=== PATIENT | male | born 1945 | race Caucasian/White ===

== ENCOUNTER 2021-11-07 23:44 | Inpatient (IN) | payer OTHER ==
[~2021-11-07] VITALS: Ht 172.7 cm; Wt 91.8 kg
[2021-11-07] MEDS ORDERED: SPIR50 PO ×2 (23:54→23:56)
[2021-11-07] MEDS ORDERED: ATOR40TA SC (23:54)
[2021-11-07] MEDS ORDERED: METO50 PO (23:54)
[2021-11-07] MEDS ORDERED: AMLODIPINE-OLM1 EAC4 PO (23:56)
[2021-11-07] MEDS ORDERED: BASAGLAR K100 UNIT/8 SC (23:57)
[2021-11-07 23:58] LABS: BASOPHILS ABSOLUTE AUTO 0.04 K/mm3 (0.00-0.23); BASOPHILS PERCENT AUTO 1 % (0-2); EOSINOPHILS ABSOLUTE AUTO 0.06 K/mm3 (0.00-0.68); EOSINOPHILS PERCENT AUTO 1 % (0-6); Hematocrit 43.4 % (37.0-53.0); Hemoglobin 14.2 g/dL (13.5-17.5); IMMATURE GRAN ABSOLUTE AUTO 0.03 K/mm3 (0.00-0.10); IMMATURE GRAN PERCENT AUTO 0 % (0-1); LYMPHOCYTES ABSOLUTE AUTO 0.77 K/mm3 (0.84-5.20); LYMPHOCYTES PERCENT AUTO 11 % (21-46); MONOCYTES ABSOLUTE AUTO 1.29 K/mm3 (0.16-1.47); MONOCYTES PERCENT AUTO 18 % (4-13); Mean Corpuscular HGB 30.7 pg (26.0-34.0); Mean Corpuscular HGB Conc 32.7 g/dL (31.5-36.5); Mean Corpuscular Volume 94 fL (80-100); Mean Platelet Volume 9.7 fL (9.1-12.4); NEUTROPHILS ABSOLUTE AUTO 4.86 K/mm3 (1.96-9.15); NEUTROPHILS PERCENT AUTO 69 % (41-73); Platelet Count 229 K/mm3 (150-400); RDW Coefficient Variation 14.9 % (11.7-14.2); RDW Standard Deviation 51.5 fL (35.1-46.3); Red Blood Cell Count 4.62 M/mm3 (4.30-5.90); White Blood Cell Count 7.05 K/mm3 (4.00-11.30)
[2021-11-07] MEDS ORDERED: PIOG30 PO (23:58)
[2021-11-08 00:19] LABS: Alanine Aminotransfer (ALT/SGP 27 U/L (12-78); Albumin, Blood 3.1 g/dL (3.4-5.0); Albumin/Globulin Ratio 0.8 (0.8-1.8); Alk Phos 98 U/L (50-136); Anion Gap 6 mmol/L (6-16); Aspartate Aminotrans (AST/SGOT 17 U/L (12-37); Bilirubin, Total 1.1 mg/dL (0.1-1.0); Blood Urea Nitrogen 17 mg/dL (8-24); Bun/Creatinine Ratio 18.7 (12.0-20.0); CO2, Blood 27 mmol/L (21-32); Chloride, Blood 105 mmol/L (98-108); Creatinine, Blood 0.91 mg/dL (0.60-1.20); Globulin, Blood 3.9 g/dL (2.2-4.0); Glomerular Filtration Rate >60 (60-); Glucose, Blood 204 mg/dL (70-99); Potassium, Blood 4.4 mmol/L (3.5-5.5); Sodium, Blood 138 mmol/L (136-145)
[2021-11-08 01:25] LABS: Source, Urine Foley catheter
[2021-11-08 01:32] LABS: Bilirubin, Urine Neg (Neg); Blood, Urine Neg (Neg); Glucose Qualitative, Urine Neg (Neg); Ketones, Urine Neg (Neg); Leukocyte Esterase, Urine Neg (Neg); Nitrite, Urine Neg (Neg); Protein, Urine 3+ (Neg); Urobilinogen, Urine 2+ (Normal)
[2021-11-08 01:33] LABS: Appearance, Urine Clear (Clear); Color, Urine Yellow (P-Yellow)
[2021-11-08 01:37] LABS: Bacteria Not Seen /hpf; Red Blood Cells, Urine Not Seen /hpf (0-2); Squamous Epithelial Cells Rare /hpf (Few); White Blood Cells, Urine Not Seen /hpf (0-5)
[2021-11-08 01:38] LABS: Amorphous Light (0-Heavy)
[2021-11-08 03:40] LABS: Influenza A, PCR NEGATIVE (NEGATIVE); Influenza B, PCR NEGATIVE (NEGATIVE); Resp Syncytial Virus, PCR NEGATIVE (NEGATIVE)
[2021-11-08 03:41] LABS: SARS-Cov-2 (COVID-19) PCR, MMC POSITIVE (NEGATIVE)
[2021-11-08 03:52] LABS: BASOPHILS ABSOLUTE AUTO 0.03 K/mm3 (0.00-0.23); BASOPHILS PERCENT AUTO 0 % (0-2); EOSINOPHILS ABSOLUTE AUTO 0.05 K/mm3 (0.00-0.68); EOSINOPHILS PERCENT AUTO 1 % (0-6); Hematocrit 43.9 % (37.0-53.0); IMMATURE GRAN ABSOLUTE AUTO 0.03 K/mm3 (0.00-0.10); IMMATURE GRAN PERCENT AUTO 0 % (0-1); LYMPHOCYTES ABSOLUTE AUTO 0.93 K/mm3 (0.84-5.20); LYMPHOCYTES PERCENT AUTO 11 % (21-46); MONOCYTES PERCENT AUTO 13 % (4-13); Mean Corpuscular HGB 30.1 pg (26.0-34.0); Mean Corpuscular HGB Conc 31.9 g/dL (31.5-36.5); Mean Corpuscular Volume 94 fL (80-100); Mean Platelet Volume 9.4 fL (9.1-12.4); NEUTROPHILS ABSOLUTE AUTO 6.23 K/mm3 (1.96-9.15); NEUTROPHILS PERCENT AUTO 74 % (41-73); Platelet Count 215 K/mm3 (150-400); RDW Coefficient Variation 14.9 % (11.7-14.2); Red Blood Cell Count 4.65 M/mm3 (4.30-5.90); White Blood Cell Count 8.37 K/mm3 (4.00-11.30)
[2021-11-08 04:10] LABS: Alanine Aminotransfer (ALT/SGP 26 U/L (12-78); Albumin, Blood 3.1 g/dL (3.4-5.0); Albumin/Globulin Ratio 0.8 (0.8-1.8); Alk Phos 97 U/L (50-136); Anion Gap 5 mmol/L (6-16); Aspartate Aminotrans (AST/SGOT 16 U/L (12-37); Bilirubin, Total 1.2 mg/dL (0.1-1.0); Blood Urea Nitrogen 17 mg/dL (8-24); Bun/Creatinine Ratio 19.2 (12.0-20.0); CO2, Blood 27 mmol/L (21-32); Calcium, Blood 9.1 mg/dL (8.5-10.1); Chloride, Blood 105 mmol/L (98-108); Creatinine, Blood 0.89 mg/dL (0.60-1.20); Glomerular Filtration Rate >60 (60-); Glucose, Blood 176 mg/dL (70-99); Potassium, Blood 4.2 mmol/L (3.5-5.5); Sodium, Blood 137 mmol/L (136-145); Total Protein, Blood 7.1 g/dL (6.4-8.2)
--- NOTE | 2021-11-08 05:21 | NUR ---
SUMMARY PTS COVID TEST RESULTED POSITIVE.PLACED PT IN ISOLATION.PT ALSO HAD SUBLIMAZE IV FOR PAIN.INITIALLY UPON ARRIVAL, PT WAS ALERT AND APPROPRIATE EVEN JOKING WITH THIS RN.SUDDENLY THIS AM,APPROX 0430, PT BECAME FORGOT HE HAD A CATHETER AND TRIED TO CLIMB OUT OF BED.ADAMENT HE NEEDED TO GO "OVER THERE" AND WAS POINTING TO BATHROOM. REMINDED PT OF PATENT MEDINA AND FX HIP AND ADVISED HE IS ON COMPLETE BEDREST, PT CONTINUED AND WAS NOT UNDERSTANDING AND WAS FLOPPING L LEG UP IN AIR KICKING IT TOWARD EDGE OF BED.RLE REMAINED ON BED WITH NOTING A SLIGHT EXTERNAL ROTATION.PEDAL PULSES WEAK BILAT,BUT PRESENT.DIFFICULT TO PALPATE DUE TO SIGNIFICANT EDEMA TO BLE /FEET. I CALLED DR SIMTH REGARDING CONFUSION NOT KNOWING IF IT IS INTERMITTENTLY PTS BASELINE,COVID ISSUE, OR POSSIBLY R/TL SUBLIMAZE GIVIEN. ORDERED ZYPREX X 1 PRN. PTS BED ALARM REMAINS ON AND BED IN LOW POSTIION.
--- NOTE | 2021-11-08 08:49 | NUR ---
PS URINE IS GETTING BLOODY AND APPEARS PT MAY HAV PULLED ON IT, WILL CONT TO MONITOR COLOR.
[2021-11-08] MEDS ORDERED: TAMS.4ER PO (14:44)
[2021-11-08] MEDS ORDERED: Aspir 8181 MG PO (14:45)
[2021-11-08] MEDS ORDERED: [UNRECOGNIZED DRUG - OTHER] PO (14:48)
--- NOTE | 2021-11-09 01:12 | NUR ---
PT HAD ZYPREXA AT 2254 WHICH CALMED PT INITIALLY.HOWEVER, PT IS CONFUSED AND AGAIN BECOMING AGITATED PULLING AT IV AND O2 LINES,TRYING TO CLIMB OUT OF BED. I CALLED DR SMITH AND RECEIVED ORDER FOR SEROQUEL 50 MG PO NOW.DELIVERY CREW MEMBER OBSERVING PT CLOSELY FOR SAFETY AND BED ALARM ON WELL.
--- NOTE | 2021-11-09 01:44 | NUR ---
SPOKE WITH DR SMITH REGARDING PTS D DIMER RESULT,TROPONIN TRENDING,CHEST XRAY RESULT AND CURRENT O2 REQUIREMENT WITH DESAT MID TO HIGH 80'S.ALSO, DISCUSSED CARDIAC HX AND W/U TODAY AND DR HANNY MENTION ? POTENTIAL FOR HEPARIN PREOP.RECEIVED ORDERS FOR TELE,AM TROP,AND 02 TITRATION.
--- NOTE | 2021-11-09 02:54 | NUR ---
PT PULLING AT MEDINA YELLING HE NEEDS TO GO TO BATHROOM. REMINDED PT OF MEDINA,AND FX HIP WITH BEDREST.BUT PT CONFUSED AGITATED CONT PULLING AT PENIS AND CATHETER AND HAS ALREADY TORE STAT LOCK APART.MEDINA DCD FOR PT SAFETY. I CALLED DR SMITH AND ADVISED OF ABOVE.ATIVAN ORDERED X1 DOSE.
--- NOTE | 2021-11-09 04:00 | NUR ---
PT DOSE OF ATIVAN LEAKING FROM IV WHEN NURSE ATTEMPTED TO MEDICATE.IV WAS DCD WITH CATH INTACT PER PRIMARY NURSE AND NEW SITE WAS OBTAINED.NURSE NOTED MILD ABD TUGGING WITH INITIAL 02 NEED 2L N/C NOW INCREASED NEED OF 5 L N/C.PT COMBATIVE PULLING O2 OFF.I CALLED DR SMITH AND ADVISED OF ABOVE AND CONCERNS FOR NEED OF INCREASED 02 AND RECEIVED ORDERS FOR ADDITIONAL DOSE OF ATIVAN AND ABG.
[2021-11-09 04:38] LABS: PCO2 Arterial 57.1 mmHg (35-45); PO2 Arterial 177 mmHg (80-100); pH Blood Arterial 7.29 (7.35-7.45)
--- NOTE | 2021-11-09 05:33 | NUR ---
SHIFT SUMMARY: PT IN BED MILDLY CONFUSED AND YELLING FOR PAIN IN LEG. AAOX2. VS WNL. IV LINE IN RIGHT HAND PATENT. MEDINA CATHETER IN PLACE PATENT WITH KENNY COLOR URINE. 2044 PT CONTINUE YELLING FOR PAIN.MEDICATED PER EMAR. COUGHING AND AGITATED. PULLING AT IV AND AND MEDINA CATHETER. 2253 ZYPREXA GIVEN PER EMAR. PT AGITATED PULLING ON MEDINA AND IV LINE. PT PALE CALLED DR. PAYNE GOT ORDER FOR O2 NC @2L. PT PLACED ON PULSE OX. ORDER PLACED FOR FURNACE MECHANIC HELPER. MONITOR IN PLACE PULLING LEADS. 0200 MEDICATION GIVEN PER EMAR AND NEW ORDER FOR SEROQUEL GIVEN. 0255 PT REMAINS AGITATED PULLING AT IV LINE. ATIVAN GIVEN ORDERED PER EMAR BUT LEAKED OUT. IV D/C LINE INTACT.0345 NEW IV LINE PLACED IN RIGHT FOREARM. CONTINUES TO BE VERY AGITATED. CALLED DR GOT ORDERS FOR ABG'S. GOT NEW ORDERED FOR ATIVAN GIVEN. RESP AT DOORWAY WAITING FOR PATIENT TO CALM DOWN. O2 SAT DECREASING INCREASED 02 TO 5L. O2 SAT DROP TO 63. PLACED ON NON-REBREATHER. CALL FOR RAPID RESPONSE TEAM. MEDICATED TOOK OVER CARE. SEVERAL CALLS MADE TO NO ANSWER OR BUSY 0530,[id number].
[2021-11-09 06:43] LABS: Source, Urine Foley catheter
[2021-11-09 06:57] LABS: Appearance, Urine Clear (Clear); Bilirubin, Urine Neg (Neg); Blood, Urine 5+ (Neg); Color, Urine Yellow (P-Yellow); Glucose Qualitative, Urine Neg (Neg); Ketones, Urine Neg (Neg); Leukocyte Esterase, Urine Neg (Neg); Nitrite, Urine Neg (Neg); Protein, Urine 3+ (Neg); Specific Gravity, Urine 1.015 (1.003-1.022); Urobilinogen, Urine 2+ (Normal)
[2021-11-09 07:11] LABS: Red Blood Cells, Urine 25-50 /hpf (0-2); Squamous Epithelial Cells Rare /hpf (Few)
[2021-11-09 07:12] LABS: Bacteria Few /hpf
[2021-11-09 07:15] LABS: Alanine Aminotransfer (ALT/SGP 27 U/L (12-78); Albumin, Blood 2.5 g/dL (3.4-5.0); Albumin/Globulin Ratio 0.7 (0.8-1.8); Alk Phos 75 U/L (50-136); Anion Gap 7 mmol/L (6-16); Aspartate Aminotrans (AST/SGOT 22 U/L (12-37); Bilirubin, Total 1.7 mg/dL (0.1-1.0); Blood Urea Nitrogen 12 mg/dL (8-24); Bun/Creatinine Ratio 11.9 (12.0-20.0); CO2, Blood 26 mmol/L (21-32); Calcium, Blood 8.4 mg/dL (8.5-10.1); Chloride, Blood 106 mmol/L (98-108); Creatinine, Blood 1.01 mg/dL (0.60-1.20); Globulin, Blood 3.5 g/dL (2.2-4.0); Glomerular Filtration Rate >60 (60-); Glucose, Blood 141 mg/dL (70-99); Potassium, Blood 4.3 mmol/L (3.5-5.5); Sodium, Blood 139 mmol/L (136-145)
--- NOTE | 2021-11-09 07:15 | NUR ---
ARRIVAL TO ICU/ INTUBATION PT ARRIVED TO ICU AT 0440 VIA SURG FLOOR BED WITH TWO RT AND ICU CHARGE NURSE AFTER WELL LOGGING OPERATOR MUD ANALYSIS WAS CALLED ON SURG FLOOR. PT TRANSFERED TO ICU BED VIA SLIDE SHEET. PT IS RESPONSIVE TO PAINFUL STIMULI AND REPOSITIONING BUT IS NOT FOLLOWING DIRECTIONS, JUST MOANING IN BED; 0.4 OF NARCAN GIVEN AND NOT HELPFUL; ADDITIONAL 0.2 OF ROMAZICON GIVEN AND NOT HELPFUL. PT IS ON BIPAP SETTINGS 28/16, FIO2 60%. HR 70'S. SBP 90'S; MAP 60-65; NOTIFIED DR SMITH WHO PROVIDED ORDERS FOR A 500ML BOLUS. BLADDER SCAN COMPLETED WITH 75ML URINE SHOWING. AT 0528 PT BRADYED DOWN TO HR 20'S; CODE BLUE CALLED; PULSE NEVER LOST BUT THREADY; SPO2 DECREASING; ED MD AT BEDSIDE AND INTUBATED PT. 8.0 ETT PLACED WITH 24CM AT TEETH. MAP CONT TO BE 60'S; CENTRAL LINE PLACED FOR POSSIBLE PRESSOR REQUIREMENT BY DR SMITH; STARTING ANOTHER 500ML BOLUS NOW FOLLOWED BY NS INFUSING AT 125ML/HR. OG PLACED. MEDINA INSERTED, UA SENT. CHEST XRAY COMPLETED. PT CONT TO ONLY BE RESPONSIVE TO PAINFUL STIMULI; NO SEDATION AT THIS TIME. EKG DONE. SHIFT REPORT GIVEN TO AM NURSE GILDA GRAHAM.
--- NOTE | 2021-11-09 08:15 | NUR ---
UPDATE: HYPOTENSION. 2nd 500ml NS BOLUS COMPLETE. MAINTENANCE FLUIDS STARTED @ 125ml/hr. MAPs TRENDING DOWNWARDS, NOW 50s. HOSPITALIST JEWELS CALLED & UPDATED. ORDERS RECEIVED FOR 3rd 500ml NS BOLUS. ORDERS PLACED.
[2021-11-09 08:47] LABS: BASOPHILS ABSOLUTE AUTO 0.02 K/mm3 (0.00-0.23); BASOPHILS PERCENT AUTO 0 % (0-2); EOSINOPHILS ABSOLUTE AUTO 0.02 K/mm3 (0.00-0.68); EOSINOPHILS PERCENT AUTO 0 % (0-6); Hematocrit 37.2 % (37.0-53.0); Hemoglobin 11.9 g/dL (13.5-17.5); IMMATURE GRAN ABSOLUTE AUTO 0.05 K/mm3 (0.00-0.10); IMMATURE GRAN PERCENT AUTO 1 % (0-1); LYMPHOCYTES ABSOLUTE AUTO 0.73 K/mm3 (0.84-5.20); LYMPHOCYTES PERCENT AUTO 8 % (21-46); MONOCYTES ABSOLUTE AUTO 1.47 K/mm3 (0.16-1.47); MONOCYTES PERCENT AUTO 16 % (4-13); Mean Corpuscular HGB 30.6 pg (26.0-34.0); Mean Corpuscular Volume 96 fL (80-100); Mean Platelet Volume 9.7 fL (9.1-12.4); NEUTROPHILS ABSOLUTE AUTO 7.08 K/mm3 (1.96-9.15); NEUTROPHILS PERCENT AUTO 76 % (41-73); Platelet Count 180 K/mm3 (150-400); RDW Coefficient Variation 14.6 % (11.7-14.2); RDW Standard Deviation 51.1 fL (35.1-46.3); Red Blood Cell Count 3.89 M/mm3 (4.30-5.90); White Blood Cell Count 9.37 K/mm3 (4.00-11.30)
--- NOTE | 2021-11-09 09:24 | NUR ---
UPDATE: PT UNSTABLE FOR CT / HYPOTENTION WHILE RECEIVING BOLUS, MAPs INC TO 80s & MAINTAINED UNTIL BOLUS COMPLETED, THEN MAPs DROPPED TO 50s. PROPOFOL DEC & PT BEGAN TO COUGH AGAINST ETT & PULL @ RESTRAINTS. CT HELD. GOSMAN UPDATED & LEVOPHED ORDERED. WILL TRANSFER PT TO CT ONCE STABLE.
--- NOTE | 2021-11-09 11:45 | NUR ---
UPDATE: ORTHO ROUNDING. DR BARNES @ BEDSIDE FOR AM ROUNDS, UPDATED ON PT PROGRESSION T/O THE NIGHT & MORNING. PT WILL NOT GO TO THE OR TODAY, STS THE PT's FRACTURE CAN WAIT UNTIL HE IS MORE STABLE & HE IS NOT OVERLY CONCERNED ABOUT THE HIP @ THIS TIME. EMMANUEL's TRACTION W/ 5lb MAX TO BE PLACED ONLY IF PT BEGINS TO LOOK VERY UNCOMFORTABLE. NO NEW ORDERS. ARSALAN UPDATED.
--- NOTE | 2021-11-09 12:15 | NUR ---
UPDATE: CT COMPLETE / CARDIOLOGY CONSULT PT TO CT FOR PE STUDY & HEAD CT. UPON RETURNING TO ICU, CENTRAL LINE WAS DC'd DURING TRANSPORT. ARSALAN @ BEDSIDE TO PLACED R FEMORAL CENTRAL LINE. LINE PLACE W/OUT DIFF & LEVOPHED RESTARTED. PT CONTINUES TO BE IN AFIB W/ SELF RESOLVING NOAH EPISODES w/ HR LOW 38 & RETURNING TO THE 60s. INTERMITTENT 1-[address] LEW CALLED W/ NO ANSWER. ONCALL MARKETING SUPPORT SPECIALIST, ALEJANDRA, PAGED - AWAITING CALL BACK. MATERIALS RESEARCH ENGINEER AWARE OF PT PROGRESSION.
--- NOTE | 2021-11-09 13:48 | NUR ---
UPDATE: CALL OUT TO CARDIOLOGY PT BECOMING PROGRESSIVELY MORE NOAH, HR CONSISTENTLY 40s W/ 1-3 sec PAUSES. ALEJANDRA PAGED AGAIN, NO RETURN CALL. [facility] CALLED & SPOKE W/ ANSWERING SERVICE. ALEJANDRA IS IN A CASE, MESSAGE GIVEN REGARDING ABOVE. ALEJANDRA TO CALL ONCE CASE IS FINISHED. POST FRAMER UPDATED.
--- NOTE | 2021-11-09 14:24 | NUR ---
SPOKE W/ DR ROBERTS, UPDATED ON PT PROGRESSION. MD TO COME SEE PT SHORTLY
--- NOTE | 2021-11-09 15:00 | NUR ---
UPDATE: DR LEW ROUNDING. SPOKE W/ DR ROBERTS, STS DR LEW SAW THE PT YESTERDAY UPON ADMISSION & HE WILL BE THE CONSULTING [employer] FOREIGN LANGUAGE TUTOR. DR LEW @ BEDSIDE, GIVEN UPDATE ON PT PROGRESSION & DISCUSSES CASE W/ DR ARRIAZA. NO NEW ORDERS GIVEN. WILL CONTINUE TO MONITOR & REPORT APPROPRIATE.
--- NOTE | 2021-11-09 17:45 | NUR ---
UPDATE: DR LEW ROUNDING. PT IS MUCH IMPROVED AFTER RECEIVING IV LASIX. HR CONTINUES TO BE AFIB, RATE 75-90s, NO NOAH EPISODES, NO PAUSES. MAPs STABLE W/ LEVOPHED @ 1mcg/min. DR LEW @ BEDSIDE FOR RE-EVAL. NO NEW ORDERS GIVEN, HE WILL F/U TOMORROW MORNING.
--- NOTE | 2021-11-09 22:00 | NUR ---
ASSUMED CARE AT 1900 PT LAYING IN BED INTUABED WITH VENT SETTINGS AC/VC 16/500/5/55%; SMALL AMOUNT OF THICK SECREATIONS NOTED. PT SEDATED WITH PROPOFOL INFUSING AT 45MCG/KG/MIN; PT REACTIVE TO NOXIOUS STIMULI BUT DID NOT FOLLOW DIRECTION; GAG AND COUGH PRESENT. AFIB NOTED, HR 70-80'S. SBP 120'S; LEVOPHED INFUSING AT 1MCG/MIN. VHP INFUSING VIA OG AT 20ML/HR (GOAL) WITH 30ML WATER FLUSHES Q4HR; 30ML RESIDUAL. MEDINA IN PLACE DRAINING TO GRAVITY. DRESSING TO RT IJ PEELING OFF, DRESSING REMOVED AND NO SIGNS OF BLEEDING OR REDNESS. SEE SHIFT ASSESSMENT FOR FULL ASSESSMENT.
[2021-11-10 04:38] LABS: BASOPHILS ABSOLUTE AUTO 0.02 K/mm3 (0.00-0.23); BASOPHILS PERCENT AUTO 0 % (0-2); EOSINOPHILS ABSOLUTE AUTO 0.09 K/mm3 (0.00-0.68); EOSINOPHILS PERCENT AUTO 1 % (0-6); Hematocrit 38.4 % (37.0-53.0); Hemoglobin 12.5 g/dL (13.5-17.5); IMMATURE GRAN ABSOLUTE AUTO 0.05 K/mm3 (0.00-0.10); IMMATURE GRAN PERCENT AUTO 1 % (0-1); LYMPHOCYTES ABSOLUTE AUTO 0.68 K/mm3 (0.84-5.20); LYMPHOCYTES PERCENT AUTO 6 % (21-46); MONOCYTES ABSOLUTE AUTO 1.13 K/mm3 (0.16-1.47); MONOCYTES PERCENT AUTO 11 % (4-13); Mean Corpuscular HGB 30.3 pg (26.0-34.0); Mean Corpuscular HGB Conc 32.6 g/dL (31.5-36.5); Mean Corpuscular Volume 93 fL (80-100); NEUTROPHILS ABSOLUTE AUTO 8.58 K/mm3 (1.96-9.15); NEUTROPHILS PERCENT AUTO 81 % (41-73); Platelet Count 194 K/mm3 (150-400); RDW Coefficient Variation 14.6 % (11.7-14.2); RDW Standard Deviation 50.4 fL (35.1-46.3); Red Blood Cell Count 4.13 M/mm3 (4.30-5.90); White Blood Cell Count 10.55 K/mm3 (4.00-11.30)
[2021-11-10 04:57] LABS: Anion Gap 9 mmol/L (6-16); Blood Urea Nitrogen 14 mg/dL (8-24); Bun/Creatinine Ratio 16.6 (12.0-20.0); CO2, Blood 25 mmol/L (21-32); Calcium, Blood 8.5 mg/dL (8.5-10.1); Chloride, Blood 106 mmol/L (98-108); Creatinine, Blood 0.85 mg/dL (0.60-1.20); Glomerular Filtration Rate >60 (60-); Glucose, Blood 216 mg/dL (70-99); Magnesium, Blood 1.9 mg/dL (1.6-2.4); Phosphorus, Blood 2.4 mg/dL (2.5-4.9); Potassium, Blood 3.6 mmol/L (3.5-5.5); Sodium, Blood 140 mmol/L (136-145)
--- NOTE | 2021-11-10 06:08 | NUR ---
END OF SHIFT SUMMARY NO ACUTE EVENTS OVERNIGHT. PT CONT TO BE INTUBATED WITH VENT SETTINGS AC/VC 16/500/5/50%; SMALL AMOUNT OF THIN SECREATIONS SENT TO LAB. PT IS REACTIVE TO PAINFUL STIMULI INCLUDING REPOSITIONING SHOWN BY INCREASED RR, INCREASED HR, GRIMICING AND WEAKLY PULLING AGAINST LT RESTRAINT; PROPOFOL INFUSING AT 40MCG/KG/MIN. DILAUDID GIVEN TWICE FOR CPOT 2-4 AND HELPFUL. MAX TEMP 100.9; FAN PLACED FOLLOWED BY ORDERS RECIEVED FROM DR SMITH FOR LIQUID TYLENOL; TEMP STARTED DECREASING WITH JUST FAN, LIQUID TYLENOL NOT GIVEN. AFIB RHYTHM NOTED; HR 80-90'S; NO NOAH EVENTS THIS SHIFT. SBP 110-130; LEVOPHED ON SB SINCE 2314. VHP INFUSING VIA OG AT GOAL WITH RESIDUALS <100ML. MEDINA IN PLACE WITH 1150ML OUTPUT THIS SHIFT. WILL REPORT TO AM RN WHEN AVAILABLE.
--- NOTE | 2021-11-10 07:18 | NUR ---
Received report from Marlen GRAHAM Patient is intubated and sedated. He has 8.0 ET and 26 cm at teeth with vent settings of AC/VC+ 16/500/50/5 and sats 94%. he arouses slightly to nocious stimuli. He has 18ga PowerGlide to DON dressing intact and site WNL's and is flushed and SL'd. He also has quad lumen CL in R groin dressing iontact and site WNL's and is infusing Propofol 40 mcg/kg/min. He has OG in place infusing VHP at 20 ml./hr and 30 ml water flushes Q4. He jhas 16Fr temp mata draining to gravity manjeet colored urine and a temp of 98.4. He has reddnes to RLE from foot to knee and redness to LLE foot to ankle and poor foot hygiene. Skin t/o otherwise in good condition and pale. He is in isolation for Covid and in bilateral wrist restraints for line and tube safety. He has been in A-Fib in 70-80's. Dr Urena has been by and will be back at 0730 with patient's son.
--- NOTE | 2021-11-10 08:39 | NUR ---
Patient had old RIJ site, pulled sutures and cleaned , placed clear opsite in place. Patient tolerated care, turning, ness care, and re-applied restraints.
--- NOTE | 2021-11-10 09:12 | NUR ---
Patient propofol off and Dr Christopher adjusted vent settings to Spon. mode PS10 40/5 and sats 96%. He is not awaking very quickly and has 200-400 volumes.
--- NOTE | 2021-11-10 09:59 | NUR ---
Patients vent settings adjusted to Spon. Mode PS8/35%/5 and sats 95%, 300-400 volumes. patient folowing commands and opens eye to verbal stimuli. Suctioned moderate secretions.
--- NOTE | 2021-11-10 11:12 | NUR ---
Patient extubated at 1030 and restraints removed at same time. Patient given bath and linen change. Patient c/o 06/28 pain with repositioning and medicated per MAR 0.5 mg Dilaudid. Notify family of change. Patient currently on 4L via NC and sats >90%. Callahan remains patent and draining to gravity manjeet colored urine.
--- NOTE | 2021-11-10 13:30 | NUR ---
Patient belly breathing and placed on CPAP 10/40% and tolerating well. He is unable to hold conversatiion other than short outburst. Follow simple commands. Callahan remains patent with light manjeet urine. CL and PowerGlide flushed and SL'd. Dr Deleon by and will take to surgery tomorrow ansd NPO after midnight and no heparin. Repositioned
--- NOTE | 2021-11-10 15:30 | NUR ---
Patient has been resting on same CPAP settings of 10 and 40% with sats. He is awakening to verbnal stimuli and can say a few words in a row.
--- NOTE | 2021-11-10 17:30 | NUR ---
Patient needed to be place back in restraints as he was pulling at mask very frequently. He is very painful with turns and is incontnent to stool and had large stool. He remains on CPAP at 10 and 40% FiO2 and sats >90%. He remains hypertensive even after medication and still very amxious. Callahan patent and had 60 ml green/manjeet colored urine. Patient very anxious and irritable at times and is unable to make complete sentences.
--- NOTE | 2021-11-10 23:00 | NUR ---
PT IS VERY PAINFUL, ESPECIALLY WITH TURNS. DR ADAMES IS CALLED AND NEW ORDERS FOR DILAUDID Q 2 ARE RECEIVED.
--- NOTE | 2021-11-11 03:02 | NUR ---
PT CONTINUES TO BE VERY PAINFUL, EVEN 40 MIN AFTER IV DILAUDID IS GIVEN. DR ADAMES IS CONTACTED FOR ORDERS.
[2021-11-11 05:27] LABS: Anion Gap 6 mmol/L (6-16); Blood Urea Nitrogen 14 mg/dL (8-24); Bun/Creatinine Ratio 18.4 (12.0-20.0); CO2, Blood 29 mmol/L (21-32); Calcium, Blood 8.5 mg/dL (8.5-10.1); Chloride, Blood 106 mmol/L (98-108); Creatinine, Blood 0.76 mg/dL (0.60-1.20); Glomerular Filtration Rate >60 (60-); Glucose, Blood 168 mg/dL (70-99); Phosphorus, Blood 2.9 mg/dL (2.5-4.9); Potassium, Blood 3.8 mmol/L (3.5-5.5); Sodium, Blood 141 mmol/L (136-145)
--- NOTE | 2021-11-11 05:30 | NUR ---
CHLORHEXIDINE WIPES DONE
[2021-11-11 05:54] LABS: BASOPHILS ABSOLUTE AUTO 0.01 K/mm3 (0.00-0.23); BASOPHILS PERCENT AUTO 0 % (0-2); EOSINOPHILS ABSOLUTE AUTO 0.13 K/mm3 (0.00-0.68); EOSINOPHILS PERCENT AUTO 2 % (0-6); Hematocrit 38.4 % (37.0-53.0); Hemoglobin 12.4 g/dL (13.5-17.5); IMMATURE GRAN ABSOLUTE AUTO 0.03 K/mm3 (0.00-0.10); IMMATURE GRAN PERCENT AUTO 0 % (0-1); LYMPHOCYTES PERCENT AUTO 10 % (21-46); MONOCYTES ABSOLUTE AUTO 0.99 K/mm3 (0.16-1.47); MONOCYTES PERCENT AUTO 12 % (4-13); Mean Corpuscular HGB 30.6 pg (26.0-34.0); Mean Corpuscular HGB Conc 32.3 g/dL (31.5-36.5); Mean Corpuscular Volume 95 fL (80-100); Mean Platelet Volume 10.8 fL (9.1-12.4); NEUTROPHILS ABSOLUTE AUTO 6.43 K/mm3 (1.96-9.15); NEUTROPHILS PERCENT AUTO 77 % (41-73); Platelet Count 212 K/mm3 (150-400); RDW Coefficient Variation 14.6 % (11.7-14.2); RDW Standard Deviation 50.7 fL (35.1-46.3); Red Blood Cell Count 4.05 M/mm3 (4.30-5.90); White Blood Cell Count 8.39 K/mm3 (4.00-11.30)
--- NOTE | 2021-11-11 06:18 | NUR ---
PT REMAINS SOMEWHAT CONFUSED, ONLY RESPONDS WITH SHORT ANSWERS WHEN QUESTIONED ABOUT PAIN, HE IS INTERMITTENTLY AGITATED, MOANING AND PULLING ON HIS RESTRAINTS. HE IS REASSURED AND REORIENTED FREQUENTLY. HE SLEEPS ON AND OFF ALL NIGHT.
--- NOTE | 2021-11-11 07:11 | NUR ---
NO OTHER SIGNIFICANT CHANGES OVERNIGHT. PT IS MEDICATED WITH HALDOL FOR AGITATION, AND REPOSITIONED FOR COMFORT. REPORT IS GIVEN TO ONCOMING SHIFT.
--- NOTE | 2021-11-11 08:00 | NUR ---
Received report from Mirna GRAHAM. Patient resting in bed with CPAP 10, 40%, RT in room making adjustments and changing over to BIPAP 16/8 40% and sats >90%. Patient resist to turning r/t pain. He remains in restraints as he pulls at mask and tubes.. He has 16 Fr Temp mata in place draining to gravity manjeet colroed urine. He is repositioned and hip supported with blankets, Oral care done. R groin CL and 18ga PowerGlide in DON, both dressings intact and sites WNL's and are flushed and SL'd. His speech remains short and broken. Deficit to left eye and rght side r/t Hx of past stroke.
--- NOTE | 2021-11-11 10:00 | NUR ---
and daughter by and he was placed on high flow 40L 40% and tolerating well for family to be able to communicate and spend brief time. After Dr Christopher spoke with family he wanted him placed back on BIPAP as he was obstructing. Dr castellanos and anesthesiologist have both been by to check on patient. Daughter wants her to be called when heading to surgery and notified as well.
--- NOTE | 2021-11-11 12:08 | NUR ---
Patient resting quietly and current BIPAP settings at 16/8 50% and satas 98%. he remaisn in A-Fib 70's and systolic 130's. Callahan remains patent with urine. Patient remains agitated with care and movement. Patient tolerated PO med with sips of water earlier. Repositioned and supported hip with blankets.
--- NOTE | 2021-11-11 13:35 | NUR ---
Went into room and patient aroused with care. He remains painful with movement and medicated per MAR. He currently on BIPAP 16/8 50% and sats >90%. 16Fr Callahan remains patent with manjeet urine. Noon ABx done. CBG 165. Day surgery by and put surgical chart together. No change to speech /communication.
--- NOTE | 2021-11-11 14:21 | NUR ---
Patient taken to OR on BIPAP in [facility] and monitor.
--- NOTE | 2021-11-11 15:12 | NUR ---
11/11/21 [address] PATIENT ARRIVED TO OR WITH MEDINA CATHETER IN PLACE DRAINING DARK BROWN URINE. PATIENT ALSO ARRIVED WITH CENTRAL LINE IN PLACE IN RIGHT GROIN, WELL A POWER GLIDE IN THE RIGHT UPPER FOREARM.
--- NOTE | 2021-11-11 16:45 | NUR ---
Patient returned on monitor in [facility] and being bagged by anesthesia. Got report from RN and anesthesia. Hooked patient to vent with settings of AC/VC+ 16/420/80/8.0 and sats 99%. Started Propofol at 40 mcg/kg/min. 16fr temp mata and is 98.3. He remains in A-Fib 70-90's. He had 30 Rocoronium at end of procedure and is currently temporary paralyzed. Called and gave update. Right hip site C/D/I. Dr Christopher requested TF to be restarted as before and will drop OG.
[2021-11-11 17:33] LABS: PCO2 Arterial 45.8 mmHg (35-45); PO2 Arterial 86.4 mmHg (80-100); pH Blood Arterial 7.38 (7.35-7.45)
--- NOTE | 2021-11-11 18:11 | NUR ---
Patient had xray for tube placement and NG placement. Was unable to place OG and put NG in right nares, positive bubble in stomach and Dr Christopher said both tubes good. Patient has 8.0 and 25 cm at teeth, Vent settings AC/VC+ 16/420/80/8 and night cleaner titrate to greater than 92%. Callahan patent and had 400 ml dark manjeet out. Patient sedated on 40 mcg/kg/min Propofol. Right hip dressing remains C/D/I.
--- NOTE | 2021-11-11 19:05 | NUR ---
Assumed care. Report received from neetu GRAHAM. Pt in bed, sedated and ventilated via ETT. Vent settings: AC/VC 16/420/8/80%. NG tube in place, TF running at 20 ml/hr goal rate. Pt has R/femoral central line and PG in DON. Propofol running at 40 mcg/kg/min. Callahan catheter in place. SWB restraints in place. VS stable, no acute needs noted at this time. Will continue to monitor.
[2021-11-12 05:02] LABS: BASOPHILS ABSOLUTE AUTO 0.03 K/mm3 (0.00-0.23); BASOPHILS PERCENT AUTO 0 % (0-2); EOSINOPHILS ABSOLUTE AUTO 0.16 K/mm3 (0.00-0.68); EOSINOPHILS PERCENT AUTO 2 % (0-6); Hematocrit 36.2 % (37.0-53.0); Hemoglobin 11.6 g/dL (13.5-17.5); IMMATURE GRAN ABSOLUTE AUTO 0.03 K/mm3 (0.00-0.10); IMMATURE GRAN PERCENT AUTO 0 % (0-1); LYMPHOCYTES ABSOLUTE AUTO 0.72 K/mm3 (0.84-5.20); LYMPHOCYTES PERCENT AUTO 10 % (21-46); MONOCYTES ABSOLUTE AUTO 0.85 K/mm3 (0.16-1.47); MONOCYTES PERCENT AUTO 11 % (4-13); Mean Corpuscular HGB 30.5 pg (26.0-34.0); Mean Corpuscular Volume 95 fL (80-100); Mean Platelet Volume 10.2 fL (9.1-12.4); NEUTROPHILS ABSOLUTE AUTO 5.75 K/mm3 (1.96-9.15); NEUTROPHILS PERCENT AUTO 76 % (41-73); Platelet Count 230 K/mm3 (150-400); RDW Coefficient Variation 14.8 % (11.7-14.2); RDW Standard Deviation 51.2 fL (35.1-46.3); White Blood Cell Count 7.54 K/mm3 (4.00-11.30)
[2021-11-12 05:18] LABS: Anion Gap 5 mmol/L (6-16); Blood Urea Nitrogen 19 mg/dL (8-24); Bun/Creatinine Ratio 28.6 (12.0-20.0); CO2, Blood 29 mmol/L (21-32); Calcium, Blood 8.6 mg/dL (8.5-10.1); Chloride, Blood 105 mmol/L (98-108); Creatinine, Blood 0.66 mg/dL (0.60-1.20); Glomerular Filtration Rate >60 (60-); Glucose, Blood 248 mg/dL (70-99); Phosphorus, Blood 2.3 mg/dL (2.5-4.9); Potassium, Blood 4.2 mmol/L (3.5-5.5); Sodium, Blood 139 mmol/L (136-145)
--- NOTE | 2021-11-12 06:26 | NUR ---
Shift summary. Pt remained in bed throughout shift, sedated and ventilated. Fi02 titrated down to 50%, vent settings otherwise unchanged. Propofol running at 30 mcg/kg/min, DON PG and R/femoral central line WNL. Callahan catheter in place, 500 mls of dark manjeet urine out this shift. VS stable, see shift assessment for further details. Will continue to monitor and report off to dayshift RN.
--- NOTE | 2021-11-12 09:03 | NUR ---
ASSUMPTION OF CARE. MECHANICAL VENTILATION WITH FIO2 50% PEEP 8, DECREASED BY DR. ARRIAZA TO 40%/5. PT TOLERATING WELL AT THIS TIME. LUNG SOUNDS CLEAR DIM. MODERATE THICK WHITE SECRETIONS FROM ETT. A FIB RATE 80S-100S. PROPOFOL DECREASED FROM 30 TO 10 FOR SEDATION VACATION. PT OPENED EYES, SHOWS PURPOSEFUL MOVEMENT OF UPPER EXTREMITIES, WITHDRAWS TO PAIN IN LOWER EXTREMITIES. GRIMACES TO ORAL CARE. TUBE FEED RUNNING AT 20ML/HR. HYPOACTIVE BOWEL TONES. SUPPOSITORY GIVEN PER EMAR. MEDINA DRAINING KENNY URINE. DISCUSSED W DR. ARRIAZA.
--- NOTE | 2021-11-12 19:34 | NUR ---
PT REMAINS ON MECHANICAL VENTILATION. NO ACUTE CHANGES THIS SHIFT. SEDATION VACATION PERFORMED. PURPOSEFUL MOVEMENT IN ALL EXTREMITIES. PROPOFOL NOW RUNNING AT 40. FIO2 40%, PEEP 5. SURGICAL DRESSING WNL. 800CC UOP TODAY. TUBE FEED RUNNING AT 30ML/HR. TURNS Q2. UPDATED ON PT STATUS.
--- NOTE | 2021-11-12 19:41 | NUR ---
Assumed care. Report received from neetu GRAHAM. Pt in bed, sedated and ventilated via ETT. Vent settings: AC/VC 16/420/5/40%. Ng tube in place, TF running at 30 ml/hr goal rate. R/femoral central line in place, DON PG in place, WNL. Propofol running at 40 mcg/kg/min. Callahan catheter in place, draining to gravity, manjeet urine. PAS bilateral calf in place. SWB restraints in place. VS stable, not acute needs at this time. Will continue to monitor.
[2021-11-13 04:38] LABS: BASOPHILS ABSOLUTE AUTO 0.02 K/mm3 (0.00-0.23); BASOPHILS PERCENT AUTO 0 % (0-2); EOSINOPHILS ABSOLUTE AUTO 0.09 K/mm3 (0.00-0.68); EOSINOPHILS PERCENT AUTO 1 % (0-6); Hematocrit 34.9 % (37.0-53.0); Hemoglobin 11.2 g/dL (13.5-17.5); IMMATURE GRAN ABSOLUTE AUTO 0.08 K/mm3 (0.00-0.10); IMMATURE GRAN PERCENT AUTO 1 % (0-1); LYMPHOCYTES PERCENT AUTO 9 % (21-46); MONOCYTES ABSOLUTE AUTO 0.94 K/mm3 (0.16-1.47); MONOCYTES PERCENT AUTO 12 % (4-13); Mean Corpuscular HGB 29.9 pg (26.0-34.0); Mean Corpuscular HGB Conc 32.1 g/dL (31.5-36.5); Mean Corpuscular Volume 93 fL (80-100); Mean Platelet Volume 10.2 fL (9.1-12.4); NEUTROPHILS ABSOLUTE AUTO 6.32 K/mm3 (1.96-9.15); NEUTROPHILS PERCENT AUTO 78 % (41-73); Platelet Count 240 K/mm3 (150-400); RDW Coefficient Variation 14.6 % (11.7-14.2); RDW Standard Deviation 50.4 fL (35.1-46.3); Red Blood Cell Count 3.74 M/mm3 (4.30-5.90); White Blood Cell Count 8.15 K/mm3 (4.00-11.30)
[2021-11-13 04:58] LABS: Anion Gap 6 mmol/L (6-16); Blood Urea Nitrogen 17 mg/dL (8-24); Bun/Creatinine Ratio 24.8 (12.0-20.0); CO2, Blood 29 mmol/L (21-32); Calcium, Blood 8.8 mg/dL (8.5-10.1); Chloride, Blood 102 mmol/L (98-108); Creatinine, Blood 0.69 mg/dL (0.60-1.20); Glomerular Filtration Rate >60 (60-); Glucose, Blood 299 mg/dL (70-99); Magnesium, Blood 1.9 mg/dL (1.6-2.4); Phosphorus, Blood 1.9 mg/dL (2.5-4.9); Potassium, Blood 4.3 mmol/L (3.5-5.5); Sodium, Blood 137 mmol/L (136-145)
--- NOTE | 2021-11-13 06:29 | NUR ---
Shift summary. Vent settings unchanged this shift, AC/VC 16/420/5/40%. Propofol running at 40 mcg/kg/min, sodium phos running at 102 mls/hr. TF at goal rate 30 ml/hr. Callahan in place, 1150 dark manjeet urine out this shift. VS stable throughout shift, see shift assessment for further details. Will continue to monitor and report off to dayshift RN.
[2021-11-13 13:38] LABS: PCO2 Arterial 38.7 mmHg (35-45); PO2 Arterial 70.1 mmHg (80-100); pH Blood Arterial 7.49 (7.35-7.45)
--- NOTE | 2021-11-13 15:41 | NUR ---
PT EXTUBATED TO HFNC AT 1420 WITH VICE PRESIDENT FIXED INCOME IN ROOM. PT NOW ON 8L HFNC. STRONG COUGH BUT IS NOT COOPERATIVE WITH ORAL SUCTIONING.
--- NOTE | 2021-11-13 18:16 | NUR ---
PT NOW ON AIRVO 35L 40%. LARGE SECRETIONS BUT HAS A STRONG COUGH AND IS ABLE TO COUGH UP SPUTUM. WHEN STAFF TRIES TO ORAL SUCTION, PT CLAMPS HIS MOUTH AND DOES NOT LET STAFF SUCTION. REMAINS IN AFIB WITH RATE 80S-110S W/ PVCS. HAS NOT SPOKEN SINCE EXTUBATION. WILL NOD TO QUESTIONS OCCASIONALLY. PURPOSEFUL MOVEMENT WITH LUE AND RUE. NEGLECT ON R SIDE BUT DOES HAVE SOME MOVEMENT OF RUE. RLE WITHDRAWS TO PAIN. KENNY URINE FROM MEDINA. NO NEW SKIN ISSUES.
--- NOTE | 2021-11-14 06:31 | NUR ---
SHIFT SUMMARY. PT BECAME MORE ALERT DURING SHIFT. NODS YES/NO TO QUESTIONS, DOES NOT FOLLOW COMMANDS. STILL IN SWB RESTRAINTS DUE TO ATTEMPTS TO PULL NG TUBE OUT. PT AIRVO SETTINGS UNCHANGED THIS SHIFT, 35 L/MIN, 40%. PT COUGHING UP COPIOUS THICK SECRETIONS. R/FEMORAL SURGICAL DRESSING IN PLACE, C/D/I. R/FEM CENTRAL LINE, DON PG BOTH WNL, CAPS CHANGED/LUMENS FLUSHED. MEDINA IN PLACE, 800 MLS OUT THIS SHIFT. SEE SHIFT ASSESSMENT FOR FURTHER DETAILS, WILL CONTINUE TO MONITOR AND REPORT OFF TO DAYSHIFT RN.
--- NOTE | 2021-11-14 07:49 | NUR ---
AM NOTE.... ASSUMED CARE OF PT AT 0700, THE PT IS A&Ox2 ABLE TO FOLLOW DIRECTIONS AT TIMES AND NOD HIS HEAD APPROPRIATELY TO QUESTIONS. THE PT IS ON AIRVO AT 35L AND 40% WITH O2 SATS 90-95%. L/S CLEAR AND DIM ON THE RIGHT SIDE COARSE ON THE LEFT. RR IS IN THE 20'S-30'S. BP STABLE. THE PT HAS TRACE EDEMA NOTED TO HIS BLE. NG TUBE IN PLACE RUNNING TUBE FEEDS AT 10MLS/HR WITH NO RESIDUALS, THIS WAS INCREASED TO 20MLS/HR AT 0735. BT PRESENT AND HYPOACTIVE, ABD IS SOFT AND NONTENDER TO PALP. THE PT'S RIGHT HIP HAS A DRESSING THAT IS C/D/I. THE PT WAS MEDICATED FOR PAIN PER EMAR. WHEN THE PT WAS ASKED IF HE WAS IN PAIN HE SAID "NO" BUT WHEN HE WAS ASKED IF HIS HIP HURT HE SAID "YES." WILL CONTINUE TO MONITOR.
--- NOTE | 2021-11-14 10:59 | NUR ---
PT UPDATE.... THE PT'S TUBE FEEDS WERE CHANGED TO GLUCERNIA WITH A GOAL OF 70MLS/HR THE PT'S CURRENT TUBE FEED RATE IS 20MLS/HR THIS WAS INCREASED TO 45MLS/HR D/T NO RESIDUALS NOTED ON ASSESSMENT. THE PT HAS USED THE PILLOW TO PULL OFF THE AIRVO CANNULA 3 TIMES THIS MORNING THE PT'S O2 SATS DROP QUICKLY DOWN TO THE LOW 80'S. WILL CONTINUE TO MONITOR.
--- NOTE | 2021-11-14 18:01 | NUR ---
SHIFT SUMMARY.... AT 1710 THE PT WAS ABLE TO PULL OUT OF THE SOFT WRIST RESTRAINT ON HIS LEFT WRIST AND PULLED HIS NG TUBE WHILE IT WAS RUNNING THE TUBE FEED AT 45MLS/HR. THE PT ALSO PULLED OFF THE AIRVO CANNULA AND HIS O2 SATS DROPPED DOWN TO THE LOW 80'S. THIS WAS PLACED BACK ON THE PT AND THE FIO2 WAS INCREASED TO 100% TO GET THE PT'S O2 SATS >90%. THE PT'S L/S HAVE SLIGHTLY INCREASED COARSENESS IN THE UPPER LOBES. DR. SERVIN NOTIFIED AND SHE WENT INTO THE ROOM TO ASSESS THE PT. PER DR. SERVIN WE WILL SEE IF THE PT CAN PASS A SWALLOW EVALUATION IN THE MORNING IF NOT THE NG TUBE WILL BE REPLACED. THE PT'S VS HAVE BEEN STABLE T/O THIS SHIFT UNLESS THE PT PULLS THE AIRVO OFF THEN HIS O2 SATS DROP QUICKLY. THE PT WAS GIVEN A BEDBATH AND LINEN CHANGE. HE WAS TURNED Q2 HRS BY STAFF BUT EVERY TIME HE IS TURNED FROM SUPINE HE WILL SLIDE HIMSELF BACK TO SUPINE. THE PT'S WAS AT THE BEDSIDE DURING VISITING HOURS, SHE WAS UPDATED BY DR. SERVIN AND THIS RN. THE PT'S MEDINA IS PATENT AND DRAINING TO GRAVITY. THE PT DID NOT HAVE A BM THIS SHIFT. WILL CONTINUE TO MONITOR UNTIL REPORT IS GIVEN TO ONCOMING RN.
--- NOTE | 2021-11-14 19:00 | NUR ---
ASSUMED CARE ASSUMED CARE OF PATIENT. AWAKE AND ALERT. MOANING AND CALLING OUT. OCCASIONAL WORDS, BUT MOSTLY INCOMPREHENSIBLE. NOT FOLLOWING ANY COMMANDS. MOVES ALL EXTREMITIES, L>R. MINIMAL MOVEMENT NOTED IN RLE. REMAINS ON AIRVO- 30L/60% FIO2. SLIGHTLY TACHYPNEIC WITH RESPIRATIONS 24-28. NPO. MEDINA PATENT AND DRAINING KENNY URINE. RIGHT HIP DRSG D/I. SCDs TO BLE. NS INFUSING AT 25CC/HR PER ORDER. REMAINS IN ENHANCED ISOLATION FOR COVID-19. SEE SHIFT ASSESSMENT FOR FULL ASSESSMENT.
[2021-11-15 04:51] LABS: BASOPHILS ABSOLUTE AUTO 0.05 K/mm3 (0.00-0.23); BASOPHILS PERCENT AUTO 1 % (0-2); EOSINOPHILS ABSOLUTE AUTO 0.29 K/mm3 (0.00-0.68); EOSINOPHILS PERCENT AUTO 3 % (0-6); Hematocrit 34.7 % (37.0-53.0); Hemoglobin 11.2 g/dL (13.5-17.5); IMMATURE GRAN ABSOLUTE AUTO 0.23 K/mm3 (0.00-0.10); IMMATURE GRAN PERCENT AUTO 3 % (0-1); LYMPHOCYTES ABSOLUTE AUTO 1.03 K/mm3 (0.84-5.20); LYMPHOCYTES PERCENT AUTO 12 % (21-46); MONOCYTES ABSOLUTE AUTO 0.98 K/mm3 (0.16-1.47); MONOCYTES PERCENT AUTO 11 % (4-13); Mean Corpuscular HGB 30.2 pg (26.0-34.0); Mean Corpuscular HGB Conc 32.3 g/dL (31.5-36.5); Mean Corpuscular Volume 94 fL (80-100); Mean Platelet Volume 10.7 fL (9.1-12.4); NEUTROPHILS ABSOLUTE AUTO 6.27 K/mm3 (1.96-9.15); NEUTROPHILS PERCENT AUTO 71 % (41-73); Platelet Count 280 K/mm3 (150-400); RDW Coefficient Variation 14.7 % (11.7-14.2); RDW Standard Deviation 51.1 fL (35.1-46.3); Red Blood Cell Count 3.71 M/mm3 (4.30-5.90); White Blood Cell Count 8.85 K/mm3 (4.00-11.30)
[2021-11-15 05:31] LABS: Alanine Aminotransfer (ALT/SGP 66 U/L (12-78); Albumin, Blood 1.9 g/dL (3.4-5.0); Albumin/Globulin Ratio 0.4 (0.8-1.8); Alk Phos 98 U/L (50-136); Anion Gap 6 mmol/L (6-16); Aspartate Aminotrans (AST/SGOT 55 U/L (12-37); Bilirubin, Total 1.6 mg/dL (0.1-1.0); Blood Urea Nitrogen 22 mg/dL (8-24); Bun/Creatinine Ratio 34.5 (12.0-20.0); CO2, Blood 26 mmol/L (21-32); Calcium, Blood 8.8 mg/dL (8.5-10.1); Chloride, Blood 108 mmol/L (98-108); Creatinine, Blood 0.64 mg/dL (0.60-1.20); Globulin, Blood 4.4 g/dL (2.2-4.0); Glomerular Filtration Rate >60 (60-); Glucose, Blood 178 mg/dL (70-99); Phosphorus, Blood 2.4 mg/dL (2.5-4.9); Potassium, Blood 4.1 mmol/L (3.5-5.5); Sodium, Blood 140 mmol/L (136-145); Total Protein, Blood 6.3 g/dL (6.4-8.2)
--- NOTE | 2021-11-15 06:37 | NUR ---
SHIFT SUMMARY NO ACUTE CHANGES. REMAINS IN AIRVO- NOW 30L/50% FIO2. CONTINUES WITH FREQUENT HARSH, CONGESTED COUGH. RESPIRATIONS EVEN AND UNLABORED AT REST. MONITOR SHOWS AFIB, RATE 90s-100s. BP STABLE. TMAX 100.4F. NPO. MEDINA PATENT AND DRAINING TO GRAVITY. SCDs TO BLE. RIGHT HIP DRSG D/I. MEDICATED WITH TORADOL 15MG IV X 2 DOSES AND FENTANYL 50MCG IV X 2 DOSES WITH SOME RELIEF OF PAIN. PT IS ORIENTED TO SELF ONLY. OCCASIONALLY FOLLOWS SIMPLE COMMANDS. SPEECH IS INCOMPREHENSIBLE AT TIMES. WILL REPORT TO ONCOMING RN WHEN AVAILABLE.
--- NOTE | 2021-11-15 07:52 | NUR ---
AM NOTE.... ASSUMED CARE OF PT AT 0700, THE PT IS A&O ABLE TO STATE HIS FAMILY'S NAMES, THE PRESIDENT BUT WHEN ASKED ABOUT THE DATE HE SAID 1962. THE PT THOUGTH HE WAS IN ONSET. THE PT WAS ON AIRVO AT 30L AND 50% WITH O2 SATS >90% L/S CLEAR AND DIM T/O. RR IN THE 20'S. THE PT IS IN AFIB IN THE LOW 100'S. TRACE EDEMA NOTED TO HIS BLE. THE PT CURRENTLY DENIES ANY PAIN. THE DRESSING TO THE PT'S RIGHT HIP IS C/D/I. THE PT'S MEDINA IS PATENT AND DRAINING TO GRAVTIY. THE PT IS MORE AWAKE AND ALERT THAN YESTERDAY HE IS ABLE TO SAY MORE MORES AND THEY ARE MORE CLEAR. THE PT CONTINUES TO PULL ON THE RESTRAINTS IN AN ATTEMPT TO REMOVE THE AIRVO FROM HIS NOSE WHEN THIS HAPPENS HIS O2 SATS DROP TO THE 80'S. CALL LIGHT IN REACH WILL CONTINUE TO MONITOR.
[2021-11-15 10:31] LABS: Vancomycin, Trough 14.3 ug/mL (5.0-10.0)
--- NOTE | 2021-11-15 11:49 | NUR ---
PT UPDATE.... THE PT HAS BEEN HAVING EXTREME MOOD SWINGS BEING HAPPY AND COOPERATIVE ONE MOMENT THEN BECOMING AGRESSIVE AND MAKING THREATS TO THIS RN SUCH "COME OVER HERE SO I CAN KILL YOU!" THEN CRYING. THE PT IS ABLE TO FOLLOW MORE COMMANDS TODAY THAN HE WAS YESTERDAY AND MOST OF THE TIME HIS SPEECH IS MORE CLEAR THAN YESTERDAY WELL. THE PT'S VS HAVE BEEN STABLE BUT HIS BP IS STARTING TO TREND UP D/T NOT BEING ABLE TO TAKE HIS PO HYPERTENSION MEDICATION THIS MORNING. PROVIDER UPDATED AND NEW ORDERS FOR PRN LABATALOL OBTAINED. THE PT'S AND DAUGHTER ARE AT THE BEDSIDE, THEY WERE UPDATED BY THIS RN. WILL CONTINUE TO MONITOR.
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
--- NOTE | 2021-11-15 18:27 | NUR ---
SHIFT SUMMARY... THE PT'S AGITATION CONTINUED TO INCREASE T/O THE AFTERNOON, DR. SERVIN PLACED ORDERS TO START A PRECEDEX DRIP, THE DRIP WAS STARTED AT 0.2MCG AND INCREASED TO 0.4MCG, WITH THIS DOSE THE PT'S AGITATION IMPROVED AND HE FELL ASLEEP. THE PT'S VS HAVE BEEN STABLE T/O THIS SHIFT. THE PT'S MEDINA IS PATENT AND DRAINED CLEAR KENNY URINE TO GRAVITY. THE PT DID NOT HAVE A BM THIS SHIFT. THE CENTRAL LINE IN THE RIGHT GROIN WAS D/C'd BY THIS RN WITHOUT ANY ISSUES. THE PT CONTINUES ON THE AIRVO AT 50L AND 30% WITH O2 SATS >93% L/S CLEAR AND DIM T/O. THE PT CONTINUES IN RESTRAINTS D/T PERSISTENT ATTEMPTS TO PULL THE AIRVO OFF. WILL CONTINUE TO MONITOR UNTIL REPORT IS GIVEN TO ONCOMING RN.
--- NOTE | 2021-11-15 20:00 | NUR ---
ASSUMED CARE NOTE PT A&O TO SELF. FOLLOWS SIMPLE COMMANDS. INTERMITENLY RESTLESS. RESTRAINED WITH BILATERAL WRIST RESTRAINTS. TITRATED PRECEDEX FROM 0.4 MCG TO 0.2 MCG DUE TO BRADYCARDIA. CHANGED TO 4L NC BY RT. Nataly LI HIP DRESSING C/D/I. PATENT MEDINA CATH WITH KENNY URINE. WILL CONTINUE TO MONITOR
[2021-11-16 03:19] LABS: BASOPHILS ABSOLUTE AUTO 0.03 K/mm3 (0.00-0.23); BASOPHILS PERCENT AUTO 0 % (0-2); EOSINOPHILS ABSOLUTE AUTO 0.01 K/mm3 (0.00-0.68); EOSINOPHILS PERCENT AUTO 0 % (0-6); Hematocrit 34.8 % (37.0-53.0); Hemoglobin 11.2 g/dL (13.5-17.5); IMMATURE GRAN ABSOLUTE AUTO 0.32 K/mm3 (0.00-0.10); IMMATURE GRAN PERCENT AUTO 3 % (0-1); LYMPHOCYTES ABSOLUTE AUTO 0.84 K/mm3 (0.84-5.20); LYMPHOCYTES PERCENT AUTO 8 % (21-46); MONOCYTES ABSOLUTE AUTO 0.79 K/mm3 (0.16-1.47); MONOCYTES PERCENT AUTO 8 % (4-13); Mean Corpuscular HGB 30.4 pg (26.0-34.0); Mean Corpuscular HGB Conc 32.2 g/dL (31.5-36.5); Mean Corpuscular Volume 94 fL (80-100); Mean Platelet Volume 10.5 fL (9.1-12.4); NEUTROPHILS ABSOLUTE AUTO 8.54 K/mm3 (1.96-9.15); NEUTROPHILS PERCENT AUTO 81 % (41-73); Platelet Count 317 K/mm3 (150-400); RDW Coefficient Variation 14.6 % (11.7-14.2); RDW Standard Deviation 50.7 fL (35.1-46.3); Red Blood Cell Count 3.69 M/mm3 (4.30-5.90); White Blood Cell Count 10.53 K/mm3 (4.00-11.30)
[2021-11-16 03:38] LABS: Anion Gap 6 mmol/L (6-16); Blood Urea Nitrogen 32 mg/dL (8-24); Bun/Creatinine Ratio 46.6 (12.0-20.0); CO2, Blood 25 mmol/L (21-32); Calcium, Blood 8.9 mg/dL (8.5-10.1); Chloride, Blood 109 mmol/L (98-108); Creatinine, Blood 0.69 mg/dL (0.60-1.20); Glomerular Filtration Rate >60 (60-); Glucose, Blood 267 mg/dL (70-99); Phosphorus, Blood 2.9 mg/dL (2.5-4.9); Potassium, Blood 4.8 mmol/L (3.5-5.5); Sodium, Blood 140 mmol/L (136-145)
--- NOTE | 2021-11-16 05:28 | NUR ---
SPOKE TO MANOJ LEBLANC WHO VOICED CONCERNS REGARDING PAIN AND ANXIETY MEDICATIONS. SHE REQUESTED WE LIMIT OR STOP THESE MEDICATIONS. DAY SHIFT RN WILL BE NOTIFIED TO DISCUSS WITH PROVIDER.
--- NOTE | 2021-11-16 06:20 | NUR ---
PT COOPERATING WITH NURSING CARES UP UNTIL 529 WHEN PATIENT BECAME AGITATED, ATTEMPTING TO GRAB AND KICK, ATTEMPTING TO PULL AT MEDINA CATH. PT REPOSITIONED AND PRECEDEX INCREASED TO 0.3 MCG. AFIB 40S-60S, SBP 80S-120S, 6L MOD FLOW NC. MEDINA DRAINING KENNY/CONCENTRATED URINE. NO BM. WILL CONTINUE TO MONITOR AND ENCOURAGE DISCUSSION OF ALTERNATIVE MEDICATIONS FOR DISCOMFORT AND SLEEP.
--- NOTE | 2021-11-16 10:18 | NUR ---
AM NOTE.... ASSUMED CARE OF PT AT 0700, THE PT WAS ON A PRECEDEX DRIP RUNNING AT 0.2MCG/KG/HR, THE PT WAS HAVING INCREASED EPISODES OF BRADYCARDIA WITH DIPS INTO THE 20'S-30'S. THE PT'S BP WAS SOFT BUT STABLE DURING THIS TIME. THE PT IS IN AFIB. UPON ASSESSMENT THE PT WAS AWAKE BUT CALM, THIS RN STOPED THE PRECEDEX DRIP. THE PT WAS ON 6L NC WITH O2 SATS >94% L/S CLEAR AND DIM IN THE BASES, RR IN THE 20'S THE PT HAS A FREQUENT VERY HARSH PRODUCTIVE COUGH WITH A SMALL AMOUNT OF THICK YELLOW/GREEN SPUTUM. THE PT HAS TRACE DEPENDENT EDEMA NOTED TO HIS BILATERAL HANDS. BT PRESENT AND HYPOACTIVE, THE PT IS NPO D/T AMS AND NOT BEING ABLE TO FOLLOW DIRECTIONS. THE PT'S MEDINA IS PATENT AND DRAINING TO GRAVITY THE PT'S URINE IS DARK KENNY WITH SEDIMENT THAT WAS NOT PRESENT YESTERDAY. AT APROX 0945 DR. EUBANKS AT THE BEDSIDE TO ASSESS THE PT, THE PT WAS CHANGED FROM THE NC AT 6L TO THE AIRVO AT 10L AND 30% FOR THE HUMIDITY TO HELP WITH THE PT'S HACKING COUGH. NEW ORDERS OBTAINED FOR ZYPREXA IM AND TO D/C THE PRECEDEX DRIP. SINCE STOPPING THE PRECEDEX THE PT'S AGITATION HAS SLOWLY INCREASED. DURING PT CARE THE PT WAS CRYING OUT AND YELLING THAT "IT HURTS IT HURTS!" WHEN ASKED WHAT WAS HURTING THE PT STATED WITH TEARS IN HIS EYES "MY LEG." THE PT CONTINUES IN SOFT WRIST RESTRAINTS IN PLACE D/T THE PT ATTEMPTING TO PULL HIS MEDINA AND AIRVO OFF. WILL CONTINUE TO MONITOR.
[2021-11-16 10:55] LABS: Thyroid Stimulating Hormone 0.886 uIU/mL (0.360-4.800)
--- NOTE | 2021-11-16 17:32 | NUR ---
SHIFT SUMMARY... NO ACUTE NEGATIVE CHANGES NOTED THIS SHIFT. THE PT CONTINUES TO BE ON THE AIRVO AT 10L AND 30% THIS CHANGE FROM THE REGULAR NC IMPROVED HIS HACKING COUGH T/O THIS SHIFT. THE PT CONTINUES TO BE CONFUSED AND COMBATIVE WITH STAFF, HE ALSO CONTINUES TO YELL OUT AND SCREAM. THE PT HAD A SMALL BM THIS SHIFT. THE PT'S WAS AT THE BEDSIDE TODAY AND WAS UPDATED ON THE PT'S PLAN OF CARE AND CURRENT CONDITION. THE PT'S MEDINA IS PATENT AND DRAINING TO GRAVITY. WILL CONTINUE TO MONTIOR UNTIL REPORT IS GIVEN TO ONCOMING RN.
--- NOTE | 2021-11-16 19:30 | NUR ---
ASSUMPTION OF CARE ASSUMED CARE AT 1930. PATIENT IN BED WITH AIRVO IN PLACE. BILAT SWR IN PLACE TO PROTECT LINES/CORDS/TUBES. PATIENT AGITATED AND IS MUMBLING WORDS TO HIMSELF WHEN NOT SPEAKING WITH STAFF. EMOTIONALLY LABILE. ABLE TO ANSWER SIMPLE QUESTIONS, OTHERWISE ORIENTED TO SELF ONLY. PATIENT DENIES NEEDS AT THIS TIME, SEE SHIFT ASSESSMENT.
[2021-11-17 03:40] LABS: Hematocrit 38.8 % (37.0-53.0); Hemoglobin 12.7 g/dL (13.5-17.5); Mean Corpuscular HGB 30.3 pg (26.0-34.0); Mean Corpuscular HGB Conc 32.7 g/dL (31.5-36.5); Mean Corpuscular Volume 93 fL (80-100); Mean Platelet Volume 10.5 fL (9.1-12.4); Platelet Count 304 K/mm3 (150-400); RDW Coefficient Variation 14.9 % (11.7-14.2); RDW Standard Deviation 50.1 fL (35.1-46.3); Red Blood Cell Count 4.19 M/mm3 (4.30-5.90); White Blood Cell Count 14.25 K/mm3 (4.00-11.30)
[2021-11-17 04:01] LABS: Alanine Aminotransfer (ALT/SGP 66 U/L (12-78); Albumin, Blood 2.2 g/dL (3.4-5.0); Albumin/Globulin Ratio 0.5 (0.8-1.8); Alk Phos 100 U/L (50-136); Anion Gap 7 mmol/L (6-16); Aspartate Aminotrans (AST/SGOT 33 U/L (12-37); Bilirubin, Total 1.4 mg/dL (0.1-1.0); Blood Urea Nitrogen 38 mg/dL (8-24); Bun/Creatinine Ratio 53.2 (12.0-20.0); CO2, Blood 25 mmol/L (21-32); Calcium, Blood 8.9 mg/dL (8.5-10.1); Chloride, Blood 113 mmol/L (98-108); Creatinine, Blood 0.71 mg/dL (0.60-1.20); Globulin, Blood 4.4 g/dL (2.2-4.0); Glomerular Filtration Rate >60 (60-); Glucose, Blood 188 mg/dL (70-99); Potassium, Blood 4.2 mmol/L (3.5-5.5); Sodium, Blood 145 mmol/L (136-145); Total Protein, Blood 6.6 g/dL (6.4-8.2)
--- NOTE | 2021-11-17 06:04 | NUR ---
SHIFT SUMMARY PCU STATUS. PATIENT ALERT AND ORIENTED TO SELF ONLY. PATIENT MUMBLING/YELLING OUT INCOHERENTLY ENTIRE NIGHT WITH MINIMAL SLEEP. NO COMBATIVE BEHAVIOR THIS SHIFT. AIRVO IN PLACE 10L 30%. WITH O2 SATS >90%. PATIENT CONTINUES TO HAVE HACKING COUGH WITH MINIMAL SPUTUM PRODUCTION. ORAL CARE PROVIDED Q4. REPOSITIONED Q2. RIGHT HIP SURGICAL DRESSING C/D/I. MEDINA DRAINING DARK YELLOW URINE TO GRAVITY. NO OTHER ACUTE CHANGES, WILL REPORT TO DAY SHIFT RN.
--- NOTE | 2021-11-17 07:40 | NUR ---
ASSUMED CARE REPORT FROM RY GRAHAM AT 0700. PT RESTING IN BED. OPENS EYES TO VERBAL STIMULI. FOLLOWS SIMPLE COMMANDS. ORIENTED TO SELF ONLY, KNOWS BIRTHDAY, WIFES NAME. DENIES PAIN. SHIFTS AND REPOSITIONS SELF IN BED. LUNGS DIM IN BASES. AIRVO AT 10L/30%. NON PRODUCTIVE COUGH. MEDS HELD D/T ASPIRATION RISK. AFIB ON MONITOR, RATE 70'S. BP STABLE. DRESSING TO RIGHT HIP, C/D/I. MEDINA PATENT, DRAINING KENNY CLEAR URINE TO GRAVITY. POWERGLIDE TO RUE, DRESSING C/D/I. PLAN FOR SPEECH, PT, OT EVAL THIS SHIFT. WILL CONTINUE TO MONITOR.
--- NOTE | 2021-11-17 18:30 | NUR ---
SHIFT SUMMARY NO ACUTE CHANGES THIS SHIFT. PT REMAINS A&O TO SELF ONLY. OCCASIONALLY TEARFUL, ANXIOUS. MEDICATED c ZYPREXA X1. WORKED c PT/OT THIS SHIFT. FOLLOWS SIMPLE COMMANDS. FAILED SPEECH EVAL, PICC PLACED AND CPN STARTED. MEDINA PATENT, 1500 ML CLEAR YELLOW URINE OUT THIS SHIFT. REMAINS ON AIRVO 10L/30%. HACKING COUGH, NOT ABLE TO CLEAR SECRETIONS. WILL CONTINUE TO MONITOR UNTIL REPORT TO ONCOMING NURSE.
--- NOTE | 2021-11-17 21:25 | NUR ---
ASSUMED CARE PATIENT IRRITABLE/RESTLESS/PULLING AT RESTRAINTS REQUIRING IM ZYPREXA X1. AOXSELF, FOLLOWS SIMPLE COMMANDS. AIRVO 10L 30%, HACKING/PRODUCTIVE COUGH. AFIB 80S-90S. MEDINA PATENT CLEAR YELLOW URINE. LEFT UPPER ARM PICC WITH TPN @75/HR. WILL CONTINUE TO MONITOR.
--- NOTE | 2021-11-18 02:48 | NUR ---
PATIENT VERBALLY AND PHYSICALLY AGGRESSIVE TOWARDS STAFF DURING A REPOSITION AT 0200. ATTEMPTING TO PULL OUT MEDINA CATHETER. 5MG IM ZYPREXA GIVEN.
[2021-11-18 04:25] LABS: Hematocrit 37.3 % (37.0-53.0); Hemoglobin 11.9 g/dL (13.5-17.5); Mean Corpuscular HGB 29.8 pg (26.0-34.0); Mean Corpuscular HGB Conc 31.9 g/dL (31.5-36.5); Mean Corpuscular Volume 94 fL (80-100); Mean Platelet Volume 10.5 fL (9.1-12.4); Platelet Count 438 K/mm3 (150-400); RDW Coefficient Variation 14.6 % (11.7-14.2); RDW Standard Deviation 50.3 fL (35.1-46.3); Red Blood Cell Count 3.99 M/mm3 (4.30-5.90); White Blood Cell Count 11.67 K/mm3 (4.00-11.30)
[2021-11-18 05:02] LABS: Anion Gap 5 mmol/L (6-16); Blood Urea Nitrogen 28 mg/dL (8-24); Bun/Creatinine Ratio 46.7 (12.0-20.0); CO2, Blood 28 mmol/L (21-32); Calcium, Blood 9.1 mg/dL (8.5-10.1); Chloride, Blood 105 mmol/L (98-108); Glomerular Filtration Rate >60 (60-); Glucose, Blood 334 mg/dL (70-99); Magnesium, Blood 2.2 mg/dL (1.6-2.4); Phosphorus, Blood 2.4 mg/dL (2.5-4.9); Potassium, Blood 4.4 mmol/L (3.5-5.5); Sodium, Blood 138 mmol/L (136-145); Triglycerides 195 mg/dL (30-160)
--- NOTE | 2021-11-18 06:19 | NUR ---
PATIENT AOX1. INCREASINGLY AGITATED AND AGGRESSIVE THROUGHOUT THE SHIFT. ZYPREXA 5MG X2. BILATERAL WRIST RESTRAINTS IN PLACE. AFIB 50S-90S. AIRVO 10L/30%. WET/HACKING/LOOSE COUGH. NO INCREASE IN OXYGEN REQUIREMENTS BUT A HIGH RISK FOR ASPIRATION. PATENT MEDINA WITH ~2L UOP. CBGS INCREASING TO 300S THIS MORNING. WILL CONTINUE TO MONITOR AND REPORT OFF TO DAYSHIFT.
--- NOTE | 2021-11-18 07:46 | NUR ---
ASSUMED CARE REPORT FROM VIANEY GRAHAM AT 0700. PT RESTING IN BED. OCCASIONALLY YELLING OUT. MORE CALM WHEN STAFF IS IN ROOM. FOLLOWS SIMPLE COMMANDS. ORIENTED TO SELF ONLY. RESTLESS IN BED. PULLING ON RESTRAINTS. WET COUGH. LUNGS DIM IN BASES. AIRVO 10L/30%. AFIB, RATE 70'S. BP STABLE. MEDINA PATENT, DRAINING CLEAR YELLOW URINE TO GRAVITY. DRESSING TO RIGHT HIP C/D/I. PICC TO LUE, POWERGLIDE RUE. CPN AT 75 ML/HR. WILL CONTINUE TO MONITOR.
--- NOTE | 2021-11-18 16:35 | NUR ---
SHIFT SUMMARY/TRANSFER TO PCU NO ACUTE CHANGES THIS SHIFT. PT CONTINUES TO BE A&OX 1. FOLLOWS SIMPLE COMMANDS. ICNREASING AGITATED c EXCESSIVE STIMULI. MEDICATED c HALDOL X 1 THIS SHIFT c MINIMAL CHANGE. LONG ACTING INSULIN INCREASED THIS SHIFT, PRN HTN MEDS ORDERED AND TORADOL ORDERED FOR PAIN. UPDATED. REPORT TO REMY GRAHAM IN PCU. TRANSFERRED TO PCU 10.
--- NOTE | 2021-11-18 17:02 | NUR ---
PT ARRIVED TO PCU 10 FROM ICU 8 VIA GURNEY. PT IS ALERT YELLING OUT ORIENTED TO SELF. PT IS ON AIRVO. IN BILATERAL WRIST RESTRAINTS FOR SAFTEY/HARM TO SELF. PT ORIENTED TO CALL SYSTEM. TELE ON. SUCTION AT THE BEDSIDE. CALL LIGHT IN REACH. WILL CONTINUE TO MONITOR AND ASSESS FOR CHANGES
[2021-11-19 04:27] LABS: Phosphorus, Blood 2.7 mg/dL (2.5-4.9)
--- NOTE | 2021-11-19 07:18 | NUR ---
ASSUMED CARE OF PT @ 1905. PT ORIENTED TO SELF ONLY, AGITATED AT TIMES, YELLING OUT, FOLLOWS SOME COMMANDS REACHING FOR AIRVO TUBING, PICC LINE. 2 PT WRIST RESTRAINTS IN PLACE. LUNGS COARSE/DIM, HACKING COUGH, UNABLE TO CLEAR SECRETIONS EFFECTIVELY. ON AIRVO MANAGED BY RT. SUCTION UTILIZED FREQUENTLY BY THIS RN. MEDINA IN PLACE DRAINING CLEAR YELLOW URINE. ELEVATED GLUCOSE OVERNIGHT - DR. VILLEDA PAGED @ 0120 FOR GLUCOSE OF 374. NO ORDERS AT THAT TIME BESIDE SLIDING SCALE CORRECTION ADMINISTERED. 0620 - PAGED FOR POC GLUCOSE OF 414 AND INCREASED TACHYPNEA. RT INCREASED TO 40L ON AIRVO. ORDERS RECEIVED (SEE EMAR FOR DETAILS)
[2021-11-19 09:27] LABS: Anion Gap 6 mmol/L (6-16); Blood Urea Nitrogen 36 mg/dL (8-24); Bun/Creatinine Ratio 54.7 (12.0-20.0); CO2, Blood 27 mmol/L (21-32); Calcium, Blood 9.3 mg/dL (8.5-10.1); Chloride, Blood 103 mmol/L (98-108); Creatinine, Blood 0.66 mg/dL (0.60-1.20); Glomerular Filtration Rate >60 (60-); Glucose, Blood 415 mg/dL (70-99); Potassium, Blood 4.7 mmol/L (3.5-5.5); Sodium, Blood 136 mmol/L (136-145)
--- NOTE | 2021-11-19 11:51 | NUR ---
AT THIS TO ROOM FOR MEDCIATION PASS, FAMILY IN ROOM PT NOTED TO HAVE BEEN REMOVED FROM RECORDER OF DEEDS RESTRAINTS AND IS REMOVING HIS AIRVO FROM NARES. PT SHOUTING OUT, FLAILING LT ARM AND LEG. PT IS PREPARING TO LEAVE FOR CT, AT THIS POINT IS TOO COMBATIVE TO FOR A QUALITY CT IMAGE, DECISION WAS MADE TO ADMINISTER ZYPREXA FOR AGITATION TO CALM PT FROM KICKING AND CALM FOR CT. PRIOR TO ADMINISTRATION PT'S FAMILY EXPRESSED CONCERNS THAT STAFF IS "JUST MEDCIATING HIM" PT'S SON STS "ARE YOU JUST PLANNING TO KEEP HIM HERE UNTIL HE DIES?" EDUCATION IS PROVIDED TO FAMILY IN THE ROOM THAT MEDICATING PT IS A LAST RESORT AND THAT SINCE PT HAS HAD A SUDDEN CHANGE IN NEURO WITH RT SIDED WEAKNESS THAT A QUALITY CT IS VERY IMPORTANT IN THE COURSE OF PT'S CARE. PT APPEARS TO HAVE A VERY POOR UNDERSTANDING OF THE EDUCATION PROVIDED AND CONTINUES TO STATE THAT STAFF "IS JUST TRYING TO MEDCIATE HIM AND YOU'RE NEVER GOING TO LET HIM GET BETTER" FAMILY IS AGAIN EDUCATED WHICH AT THIS POINT THEY EXPRESSED UNDERSTANDING THAT MEDICATING PT IS A LAST RESORT, AND THAT OBTAINING A QUALITY SCAN IS VERY IMPORTANT
--- NOTE | 2021-11-19 17:57 | NUR ---
SHIFT NOTE PT HAS BEEN IN AND OUT OF RESTRAINTS T/O THE DAY, PT ARM IN RESTRAINT AND RT ARM IS FREE AND RT ARM IS FLACCID. PT WAS PLACED ON 4L NC AND REMOVED FROM AIRVO WITH SPO2 97%. PT REMAINS WITH AMS, AGITATED. PT DID RECIEVE LACTULOSE ENEMA THIS AFTERNOON, PT WITH LARGE LOOSE BM AFTER ENEMA, LINENS CHANGED, ATTENDS CHANGED. VSS T/O THE DAY. FAMILY WAS UPDATED BY DR FORD, ALSO SEE PREVIOUS NURSE NOTE. PT HAS BEEN TO CT TODAY, CT WAS REVIEWED BY DR FORD.
--- NOTE | 2021-11-19 21:31 | NUR ---
1944 - THIS RN ENTERED ROOM WITH PATIENT OUT OF L SOFT WRIST RESTRAINT AND PULLING AT PICC LINE/TELEMETRY. L SOFT WRIST RESTRAINT REAPPLIED. PT ORIENTED TO SELF ONLY, AGITATED, TACHYPNEIC W/RETRACTIONS. RT, PCU CHARGE JESSICA Fine AND ICU CHARGE AMAN Fernandez TO BEDSIDE TO ASSESS PATIENT PER THIS RN REQUEST. OTHER VSS PER PT TREND, O2 SATS 92-95% ON 4L. RESPIRATORY RATE 28. RT PLACED PT ON BIPAP/CPAP, DR. BRISCOE NOTIFIED OF ABOVE AND NEED FOR ICU TRANSFER D/T RESTRAINTS AND BIPAP. REPORT GIVEN TO ILAN RN AND TRANSFER TO ICU @ 2054 WITH THIS RN AND RT AT BEDSIDE.
--- NOTE | 2021-11-19 23:29 | NUR ---
Patient arrived to unit @2049 via bed from PCU. On CPAP, appears to be tolerating. After assessment, pts restraints changed to bilateral soft restrains of wrists; indicated du to patient reaching for CPAP and picc/ IV lines. Pt is not able to be verbally redirected at this time. On assessment, he is not oriented; will not respond to any orientation questions. Moves right side significantly less than left; but will not follow commands/ be cooperative for thorough assessment. Tachycardic, afib, see strip. QTC wnl, haldol given for agitation with little change in patient presentation. Lung sounds diminished. Callahan in place. Dressing clean dry and intact on right hip. Close monitoring for safety while restrained on bipap.
[2021-11-20 05:32] LABS: BASOPHILS ABSOLUTE AUTO 0.11 K/mm3 (0.00-0.23); BASOPHILS PERCENT AUTO 1 % (0-2); EOSINOPHILS ABSOLUTE AUTO 0.01 K/mm3 (0.00-0.68); EOSINOPHILS PERCENT AUTO 0 % (0-6); Hematocrit 44.6 % (37.0-53.0); Hemoglobin 14.5 g/dL (13.5-17.5); IMMATURE GRAN ABSOLUTE AUTO 0.65 K/mm3 (0.00-0.10); IMMATURE GRAN PERCENT AUTO 3 % (0-1); LYMPHOCYTES ABSOLUTE AUTO 1.14 K/mm3 (0.84-5.20); LYMPHOCYTES PERCENT AUTO 5 % (21-46); MONOCYTES PERCENT AUTO 7 % (4-13); Mean Corpuscular HGB Conc 32.5 g/dL (31.5-36.5); Mean Corpuscular Volume 92 fL (80-100); Mean Platelet Volume 10.5 fL (9.1-12.4); NEUTROPHILS ABSOLUTE AUTO 20.74 K/mm3 (1.96-9.15); NEUTROPHILS PERCENT AUTO 85 % (41-73); Platelet Count 518 K/mm3 (150-400); RDW Coefficient Variation 14.6 % (11.7-14.2); RDW Standard Deviation 49.1 fL (35.1-46.3); Red Blood Cell Count 4.84 M/mm3 (4.30-5.90); White Blood Cell Count 24.35 K/mm3 (4.00-11.30)
--- NOTE | 2021-11-20 05:42 | NUR ---
Patietn remains consistanly agitated throughout the shift; no change noted after administration of PRN's. Glucose at mignight over 400; no insulin in TPN, otheriwse NPO. Dr. Salcedo notified, 15u extra lantus given. Attempted to swtich patient from CPAP to Airvo with RT at the bedsdie in an attempt to lessen his agitation. On Airvo, patient maintained O2 sats but became extremely tachypnic, WOB increased. Put on BiPAP at this time.
[2021-11-20 06:10] LABS: Alanine Aminotransfer (ALT/SGP 52 U/L (12-78); Albumin, Blood 2.7 g/dL (3.4-5.0); Albumin/Globulin Ratio 0.6 (0.8-1.8); Alk Phos 107 U/L (50-136); Anion Gap 5 mmol/L (6-16); Aspartate Aminotrans (AST/SGOT 19 U/L (12-37); Bilirubin, Total 1.3 mg/dL (0.1-1.0); Blood Urea Nitrogen 45 mg/dL (8-24); Bun/Creatinine Ratio 51.5 (12.0-20.0); CO2, Blood 29 mmol/L (21-32); Calcium, Blood 9.6 mg/dL (8.5-10.1); Chloride, Blood 105 mmol/L (98-108); Creatinine, Blood 0.87 mg/dL (0.60-1.20); Globulin, Blood 4.5 g/dL (2.2-4.0); Glomerular Filtration Rate >60 (60-); Glucose, Blood 364 mg/dL (70-99); Magnesium, Blood 2.2 mg/dL (1.6-2.4); Phosphorus, Blood 3.9 mg/dL (2.5-4.9); Potassium, Blood 4.7 mmol/L (3.5-5.5); Sodium, Blood 139 mmol/L (136-145); Total Protein, Blood 7.2 g/dL (6.4-8.2)
--- NOTE | 2021-11-20 07:05 | NUR ---
ASSUME CAER: I have assumed care of pt. At this time he is in bed with CPAP on and restraints in place
--- NOTE | 2021-11-20 13:07 | NUR ---
Met with patients son who is here for a few days and his wi . Review of pt care. They had questions about prognosis and quality of life pt has advance directive from his primary care physician. He has had the some physician for many years and they are great friends. they had a careful converstion about his life pt made himself a dnr limited treatment. copy on chart and sent to medical records. After discussion with family they agreed who would not want recusitation and code status changed. family initiated conversation regarding quality of life and comfort. At this time continue treatment and they will review with their physician a plan of care. Intesivist updated.
--- NOTE | 2021-11-20 19:15 | NUR ---
SHIFT SUMMARY: Pt transitioned to airvo today 45% 45 L/min and is tolerating this well. Dobhoff placed today. Family visited; code status changed to DNR. Pt remains in restraints as he removed his cannula when he is able and quickly desats. PICC line dressing changed; pt required 1mg of ativan. PE study completed this evening.
--- NOTE | 2021-11-20 20:37 | NUR ---
ASSUMED CARE OF PT AT 1915. REPORT RECEIVED. PT PRESENTS IN BED MOVING ABOUT NON-STOP. PT HAS MANAGED TO GET HIS AIRVO CANNULA OFF HIMSELF. REPLACED. PT DID DESATURATE INTO MID 70 PERCENTS WHEN ON ROOM AIR. VERY DYSPNEIC. VERY COARSE LUNG SOUNDS. PT HAS NON PRODUCTIVE COUGH. DOES NOT FOLLOW ANY COMMANDS. HAS BEEN INCONTINENT TO SMALL LOOSE STOOL. PT RESISTS SOME OF CARE. WILL REVIEW CHART AND PLAN OF CARE FOR THIS PT.
[2021-11-21 05:54] LABS: Anion Gap 4 mmol/L (6-16); Blood Urea Nitrogen 42 mg/dL (8-24); Bun/Creatinine Ratio 53.9 (12.0-20.0); CO2, Blood 32 mmol/L (21-32); Calcium, Blood 9.7 mg/dL (8.5-10.1); Chloride, Blood 108 mmol/L (98-108); Creatinine, Blood 0.78 mg/dL (0.60-1.20); Glomerular Filtration Rate >60 (60-); Glucose, Blood 153 mg/dL (70-99); Potassium, Blood 4.3 mmol/L (3.5-5.5); Sodium, Blood 144 mmol/L (136-145)
--- NOTE | 2021-11-21 05:57 | NUR ---
PT HAS BEEN MEDICATED SEVERAL TIMES WITH ATIVAN, AND SEVERAL TIMES WITH FENTANYL 50 MCG'S FOR INCREASE IN AGITATION AND RESTLESSNESS. MODERATE RESULTS NOTED. PT HAS HAD INCREASE IN CONGESTION WITH POOR ABILITY TO CLEAR SECRETIONS. HAVE DONE NT SUCTIONING SEVERAL TIMES WITH RETURNS OF LARGE AMOUNT OF YELLOW/TEJADA SECRETIONS. PT CONTINUES WITH AIRVO CURRENTLY AT 60 LITERS WITH FIO2 100 PERCENT. PT HAD EPISODE WITH DESATURATION WHICH RESULTED IN INCREASE IN FIO2. DID PLACE NONREBREATHER MASK AT 15 L/M SECONDARY TO PT MOUTH BREATHING AND NOT GAINING BENIFIT OF AERVO. GLUCERNA RUNNING AT 30 ML/HOUR WITH GOAL RATE 70 ML PER HOUR. WILL INCREMENT UP BY 20 ML UNTIL GOAL REACHED. PT HAS BEEN VERY ACTIVE THROUGHOUT THE NIGHT. WILL CONTINUE TO MONITOR PT, AND WILL REPORT OFF TO ONCOMING RN.
--- NOTE | 2021-11-21 08:57 | NUR ---
MINIMAL NOXIOUS/PAIN RESPONSE, GCS 4, PUPILS 2MM SLUGGISH, RESTRAINTS CONTINUED, NRB 15LPM ON PATIENT, RT INITATED BIPAP 18/8 AT 50% WITH IMPROVEMENT, LUNGS SIGNIFICANT COARSNESS SOME DIMINSHMENT LLL, PERIODS OF APNEA W/ LOW TIDAL VOLUMES, AFIB 90-120S, BP WNL, WEAK DORSAL PALPATION PULSES, MEDINA PATENT KENNY OUTPUT, ABDOMEN ROUNDED NON FIRM, HYPOACTIVE BOWELS, TF HELD CONCERN FOR ASPIRATION, MD AWARE OF UPDATES ON PATIENT AND CARE, WILL CONTINUE TO MONITOR PATIENT THROUGH SHIFT.
[2021-11-21 09:03] LABS: Hemoglobin 15.5 g/dL (13.5-17.5); Mean Corpuscular HGB 29.9 pg (26.0-34.0); Platelet Count 560 K/mm3 (150-400); RDW Coefficient Variation 15.2 % (11.7-14.2); RDW Standard Deviation 52.3 fL (35.1-46.3); Red Blood Cell Count 5.18 M/mm3 (4.30-5.90); White Blood Cell Count 27.95 K/mm3 (4.00-11.30)
[2021-11-21 09:04] LABS: Mean Corpuscular Volume 97 fL (80-100)
[2021-11-21 10:46] LABS: Hematocrit 49.6 % (37.0-53.0); Hemoglobin 15.4 g/dL (13.5-17.5); Mean Corpuscular HGB 29.8 pg (26.0-34.0); Mean Corpuscular Volume 96 fL (80-100); Mean Platelet Volume 10.3 fL (9.1-12.4); Platelet Count 528 K/mm3 (150-400); RDW Coefficient Variation 15.3 % (11.7-14.2); RDW Standard Deviation 52.1 fL (35.1-46.3); Red Blood Cell Count 5.16 M/mm3 (4.30-5.90); White Blood Cell Count 39.28 K/mm3 (4.00-11.30)
--- NOTE | 2021-11-21 13:07 | NUR ---
pt called and updated on current condition. She is ill and cannot come in to hopital. will send son in when he gets back. advised will update with any changes.
[2021-11-21 18:48] LABS: Source, Urine Foley catheter
--- NOTE | 2021-11-21 18:57 | NUR ---
GCS 4 THIS SHIFT, MINIMAL PAIN RESPONSE, AGITATED AT TIMES, DOES NOT FOLLOW COMMANDS, PUPILS 2MM SLUGGISH, ROLLS/TOSSES IN BED W/ VSS ELEVATED D/T AGITATION, 1MG ATIVAN X2 GIVEN WITH MODERATE RESULTS, LUNGS COARSE ALL SUAREZ, BIPAP INITIATED 18/8 HIGH 50%, SATS HIGH 80S, AFIB 110S HIGH 130S WITH AGITATION, BP WNL TO HTN 90-150S, UOP MINIMAL KENNY/ORANGE, NS 100ML/HR INITIATED, ABDOMEN ROUNDED HYPOACTIVE BOWELS, LACTULOSE GIVEN, AMONIA CORRECTED, TF HELD D/T ASPIRATION CONCERNS, ABLE TO USE FOR MEDS HOWEVER, RESTRAINTS CONTINUED FOR AGITATION/LINES, WBC TREND ELEVEATED 39 , BLOOD CULTURES DRAWN, BROAD SPECTRUM ABX ORDERED, URINE CULTURE SENT, SPUTUM CULTURE NEEDED, CBGS 200S COVERED W/ INSULIN IV, REPORT GIVEN TO NIGHT RN.
[2021-11-21 19:01] LABS: Appearance, Urine Clear (Clear); Bilirubin, Urine Neg (Neg); Blood, Urine 4+ (Neg); Color, Urine Amber (P-Yellow); Glucose Qualitative, Urine Neg (Neg); Ketones, Urine Neg (Neg); Leukocyte Esterase, Urine Neg (Neg); Nitrite, Urine Neg (Neg); Protein, Urine 3+ (Neg); Specific Gravity, Urine 1.025 (1.003-1.022); Urobilinogen, Urine 2+ (Normal)
[2021-11-21 19:10] LABS: Bacteria Mod /hpf; Squamous Epithelial Cells Not Seen /hpf (Few); Transitional Epithelial Cells Rare /hpf (0-Rare)
[2021-11-22 05:01] LABS: Hematocrit 43.6 % (37.0-53.0); Hemoglobin 13.8 g/dL (13.5-17.5); Mean Corpuscular HGB 30.3 pg (26.0-34.0); Mean Corpuscular HGB Conc 31.7 g/dL (31.5-36.5); Mean Corpuscular Volume 96 fL (80-100); Mean Platelet Volume 10.4 fL (9.1-12.4); Platelet Count 349 K/mm3 (150-400); RDW Coefficient Variation 15.3 % (11.7-14.2); RDW Standard Deviation 52.7 fL (35.1-46.3); Red Blood Cell Count 4.56 M/mm3 (4.30-5.90); White Blood Cell Count 24.75 K/mm3 (4.00-11.30)
[2021-11-22 05:28] LABS: Albumin, Blood 2.2 g/dL (3.4-5.0); Anion Gap 3 mmol/L (6-16); Blood Urea Nitrogen 44 mg/dL (8-24); Bun/Creatinine Ratio 58.1 (12.0-20.0); CO2, Blood 30 mmol/L (21-32); Calcium, Blood 8.8 mg/dL (8.5-10.1); Chloride, Blood 114 mmol/L (98-108); Creatinine, Blood 0.76 mg/dL (0.60-1.20); Glomerular Filtration Rate >60 (60-); Glucose, Blood 86 mg/dL (70-99); Phosphorus, Blood 2.2 mg/dL (2.5-4.9); Potassium, Blood 4.6 mmol/L (3.5-5.5); Sodium, Blood 147 mmol/L (136-145)
--- NOTE | 2021-11-22 07:34 | NUR ---
VERY RESTLESS MOST OF NIGHT, THRASHES HEAD SIDE TO SIDE, MOVEMENT OF JAW CAUSING BOTTOM LIP TO DROP BELOW BIPAP MASK CAUSING AIR LEAK. YANKING ON RESTRAINTS AND THROWING LEG OUT OF BED- MAINLY WITH ONLY LEFT SIDE. RIGHT HIP INCISION-CATY INTACT. DRESSING CHANGED. WHEN TURNED TO RIGHT HAS MORE RESTLESSNESS AND GRIMACING. SEEMS MORE COMFORTABLE WHEN LYING ON LEFT SIDE. UNABLE TO LEASES AND LAND SUPERVISOR O2 SATS ON FINGERS OR EAR. FOREHEAD PROB APPLIED, SATS IN UPPER 90-100%. FiO2 DECREASED TO 40%. DOES NOT ATTEMPT TO COMMUNICATE OR FOLLOW DIRECITONS.
--- NOTE | 2021-11-22 09:54 | NUR ---
0700: SBAR FROM RN JANINE. PT IN SOFT RESTRAINTS AND APPEARS AGITATED ON BIPAP 18/8/40%. VSS. IVF VERIFIED. BED IN LOW/LOCKED POSITION. PT NOT FOLLOWING ANY COMMANDS, GARBLED SPEECH, OPENS EYES SPONTANEOUSLY. 0800: NOTIFIED DR. FLOREZ OF BGL 72 AND REQUESTED REVIEW OF LANTUS ORDER. D/C'D LANTUS PER MD. REQUESTED CONSIDERATION FOR IMPROVED PAIN CONTROL; IV KETOROLAC THEN ORDERED. NOTIFIED OF LOW PHOSPHORUS LEVEL, NO CHANGE AT THIS TIME TO PLAN OF CARE. 0900 (APPROX, SEE RT NOTE): PT REMOVED FROM BIPAP. DR. FLOREZ AT BEDSIDE AND STATES ACCEPTABLE SPO2 IS 85% WITHOUT FURTHER INTERVENTION. PT APPEARS MORE AWAKE WITH BIPAP OFF, CONTINUALLY MOVING R LEG IN ATTEMPT TO GET OUT OF BED. PT REFUSES TO ALLOW ANY ORAL CARE OR SUCTIONING, BITING DOWN WITH ANY ATTEMPT. NEURO: NO EYE TRACKING, DOES NOT FOLLOW ANY COMMANDS, NO SPEECH NOTED. R SIDE MINIMAL/NO MOVEMENT TO RUE/RLE, HX OF CVA W/ R DEFICIT NOTED BY NIGHT RN. ANXIOUS, AGITATED. RESP: PT DID NOT TOLERATE BIPAP. PT ON 4L PER NC AT 1000 TO KEEP SPO2 85-90%. TACHYPNEIC. FREQUENT COUGHING, WET, WILL NOT ALLOW SUCTION AND DOES NOT PRODUCE PHLEGM FOR VIEWING/SAMPLE. CARDIAC: AFIB W/ RVR, UNCHANGED, OCCASIONALLY TO 90'S WHEN CALMER. BP STABLE. LUE PICC, RUE POWERGLIDE FLUSHED W/ NS. GI: DHT CLAMPED. BGL 72, LANTUS DISCONTINUED. : KENNY COLORED URINE, APPROX 450ML/12 HRS PER LOOM MECHANIC PER RN. DRAINING TO GRAVITY/MEDINA. MK: R HIP S/P ORIF, MAINTAINED WITHOUT CROSSING MIDLINE AND/OR PAST 90 DEG FLEXION, HEEL ELEVATED. LLE FREQUENT MOVEMENT. INTEG: DRESSING APPLIED TO L KNEE DUE TO ABRASION NOTED. SCATTERED ECCHYMOSIS TO EXTREMETIES/TORSO. R HIP W/ CATY AND DRESSING CDI. PSYCH: DR. FLOREZ SPOKE WITH SPOUSE, POSSIBLE TRANSITION TO COMFORT CARE SOON. WILL TRANSFER TO MED/SURG PER MD.
--- NOTE | 2021-11-22 10:34 | NUR ---
0700: SBAR FROM GLADYS DIMAS. PT RESTING IN BED, OCCASIONAL COUGHING, OCCASIONAL GARBLED SENTENCES, FOLLOWING SIMPLE ONE-STEP COMMANDS. BED IN LOW/LOCKED POSITION. RESTRAINTS REVIEWED. 1000: PT FREQUENTLY ATTEMPTING TO GET OUT OF BED, PUTTING LEGS OVER SIDE AND SITTING UP FAR POSSIBLE AND ATTEMPTING TO PULL OUT TUBES. REDIRECTABLE TO SOME DEGREE.
--- NOTE | 2021-11-22 12:46 | NUR ---
NONREBREATHER PLACED ON PATIENT AT 1200 DUE TO SPO2 78% PER NASAL CANNULA 6LPM. O2 SATS TO 87%. FAMILY OF PATIENT AT BEDSIDE TO VISIT WITH PATIENT. THEY REQUESTED I WAIT TO GIVE PT PAIN MEDICATION/SEROQUEL UNTIL AFTER VISIT, WHICH REQUEST I HONORED (SEE MAR). PT APPEARS MORE COMFORTABLE W/ LESS GRIMACING AND AGITATED LLE MOVEMENT S/P ADMINISTRATION OF HYDROMORPHONE 1MG. FAMILY REQUESTED THAT, IF POSSIBLE, AN EXCEPTION TO VISITATION HOURS BE MADE THIS EVENING DUE TO POSSIBILITY OF PT'S PASSING AWAY; FAMILY IS AWAITING TWO MEMBERS WHO WON'T ARRIVE UNTIL THIS EVENING AND WOULD LIKE TO BE PRESENT TO GIVE FAREWELL TO PATIENT IF POSSIBLE.
--- NOTE | 2021-11-22 12:57 | NUR ---
1245: DR. FLOREZ NOTIFIED OF PT DESATURATION < 80% ON NRB. . FAMILY AT BEDSIDE. DR. FLOREZ STATES NO FURTHER RESPIRATORY INTERVENTION AT THIS TIME FAMILY WISH TO PURSUE COMFORT CARE. 1300: SPO2 CONTINUES TO DECLINE INTO 30'S. FAMILY AT BEDSIDE AND NOTIFIED OF STATUS. PRIVACY PROVIDED TO FAMILY AT THIS TIME. PT DOES NOT DEMONSTRATE S/S OF DISTRESS OR AGITATION.
--- NOTE | 2021-11-22 14:33 | NUR ---
1434: ASYSTOLE WITH APNEA NOTED. MAINTAINED.
--- NOTE | 2021-11-22 15:41 | NUR ---
LINES/TUBES REMOVED AT 1530: LUE PICC; RUE POWERGLIDE; DHT; MEDINA CATHETER ALL PATIENT BELONGINGS WERE SENT WITH FAMILY.
--- NOTE | 2021-11-22 16:35 | NUR ---
PT DISCHARGED TO [facility] IN CARE OF MAUREEN RUDOLPH AT 1635.
== END 2021-11-22 14:34 | DRG 480 ==
LOC: ER 23:44 → SURS 23:45 → ER 11-08 02:07 → SURS 11-08 02:30 → ICUW 11-08 03:16 → SURS 11-08 03:16 → ICUE 11-08 03:16 → SURS 11-08 03:17 → ICUE 11-09 04:40 → PCU 11-18 16:17 → ICUW 11-19 20:53
PROVIDERS: Internal Medicine; Internal Medicine Critical Care Medicine; Internal Medicine Hematology; Physician Assistant; ADMIT Internal Medicine
PROC: 8E0ZXY6 Isolation (ICD-10-PCS; 2021-11-08)
PROC: 5A1945Z Respiratory Ventilation, 24-96 Consecutive Hours (ICD-10-PCS; 2021-11-09)
PROC: 0BH17EZ Insertion of Endotracheal Airway into Trachea, Via Natural or Artificial Opening (ICD-10-PCS; 2021-11-09)
PROC: 5A09557 Assistance with Respiratory Ventilation, Greater than 96 Consecutive Hours, Continuous Positive Airway Pressure (ICD-10-PCS; 2021-11-09)
PROC: 02H633Z Insertion of Infusion Device into Right Atrium, Percutaneous Approach (ICD-10-PCS; 2021-11-09)
PROC: 3E033XZ Introduction of Vasopressor into Peripheral Vein, Percutaneous Approach (ICD-10-PCS; 2021-11-10)
PROC: 0QS636Z Reposition Right Upper Femur with Intramedullary Internal Fixation Device, Percutaneous Approach (ICD-10-PCS; 2021-11-11)
PROC: 3E0333Z Introduction of Anti-inflammatory into Peripheral Vein, Percutaneous Approach (ICD-10-PCS; principal; 2021-11-15)
DX: S72.141A Displaced intertrochanteric fracture of right femur, initial encounter for closed fracture (principal); U07.1 COVID-19; J96.01 Acute respiratory failure with hypoxia; J13 Pneumonia due to Streptococcus pneumoniae; J69.0 Pneumonitis due to inhalation of food and vomit; G92.8 Other toxic encephalopathy; J15.211 Pneumonia due to Methicillin susceptible Staphylococcus aureus; I48.21 Permanent atrial fibrillation; I69.351 Hemiplegia and hemiparesis following cerebral infarction affecting right dominant side; Z53.29 Procedure and treatment not carried out because of patient's decision for other reasons; Z51.5 Encounter for palliative care; G47.33 Obstructive sleep apnea (adult) (pediatric); W18.30XA Fall on same level, unspecified, initial encounter; I11.0 Hypertensive heart disease with heart failure; I50.9 Heart failure, unspecified; E11.65 Type 2 diabetes mellitus with hyperglycemia; E78.5 Hyperlipidemia, unspecified; E66.9 Obesity, unspecified; I25.10 Atherosclerotic heart disease of native coronary artery without angina pectoris; Z95.5 Presence of coronary angioplasty implant and graft; Z79.4 Long term (current) use of insulin; I25.2 Old myocardial infarction; Z79.899 Other long term (current) drug therapy; Z68.35 Body mass index [BMI] 35.0-35.9, adult; D72.829 Elevated white blood cell count, unspecified; T38.0X5A Adverse effect of glucocorticoids and synthetic analogues, initial encounter; Z78.1 Physical restraint status
CPT/HCPCS: 0241U; 31500; 31720; 36415; 36556; 36569; 36600; 51702; 70450; 71045; 71260; 73503; 73560-RT; 80048; 80053; 80069; 80202; 81001; 82140; 82550; 82607; 82746; 82803; 82947; 83036; 83735; 83880; 84100; 84145; 84443; 84478; 84484; 85025; 85027; 85379; 85651; 86140; 86592; 86850; 86900; 86901; 87040; 87070; 87077; 87086; 87147; 87186; 87205; 92610; 93005; 93010; 94002; 94003; 94640; 94660; 94664; 94668; 94762; 96374; 96375; 96376; 97162; 97167; 97530; 99285-25; A9270; C1713; C1751; C1894; C8929; C9113; J0295; J0330; J0461; J0690; J0696; J1100; J1170; J1630; J1644; J1650; J1815; J1885; J1940; J2060; J2270; J2310; J2405; J2704; J3010; J3370; J3411; J7030; J7040; J7050; J7060; J7120; Q9957; Q9967